=== PATIENT | male | born 1940 | race Caucasian/White ===

== ENCOUNTER → 2018-03-29 | Emergency (ER) | payer OTHER, BC ==
[~2018-03-29] MED LIST: TETANUS AND DIPHTHERIA TOXOID 0.5 ML DISP.SYRIN IM ONE
[2018-03-29 13:28] VITALS: BP 148/68; PULSE 56; TEMP 97; BMI 24.2
--- NOTE | 2018-03-29 14:30 | PDOC ---
History of Present Illness - General History Source: Patient, Spouse - History of Present Illness Initial Comments: 77 y/o M from [facility] w/PMH of gait instability, HLD, dementia, depression, alzheimer's, CKD, HTN, AAA, BPH, PVD, lung ca (s/p resection) presents to the ER after a mechanical fall last night. He got up to go the bathroom at approximately 2 am and slipped and fell while wearing socks. He hit his head on the baseboard of bathroom and crawled to his bed and got back in bed. He denies any LOC. He told the NH about his fall at 9am because he says he did not find anyone to tell until them. He cannot walk without his walker and if he walks using his walker he can only walk approximately 5 feet. He denies any CP, SOB, palpitations, light-headedness, dizziness at the time of the fall and he says he slipped due to wearing socks. Currently denies the same symptoms including [place] , N/V/F/C, dysuria, increased frequency, cough, LE edema. He has no pain around site of bruising at R eye or at laceration site. He does report having increased dizziness since starting klonopin about 1 week ago for agitation instead of using marijuana. He has had 1 fall in the past 1 year for which he did not seek medical attention. PMH:gait instability, HLD, dementia, depression, alzheimer's, CKD, HTN, AAA, BPH , PVD, lung ca (s/p resection) PSHx: lung nodule resection 1 year ago, appendectomy SH: Smoked 2 ppd until 3 years ago for approximately 40 years. Denies alcohol use. Marijuana use twice a day. Allergies: NKDA Meds: Sertraline 100 mg, Metoprolol succ 25 mg qd, ASA 81, Melatonin 3 mg. Code Status: DNR/DNI HCP: : Jessi Orta 03/29/18 14:31 03/29/18 14:33 <Sunil Hull - Last Filed: 03/29/18 17:21> <Margarita Lantigua - Last Filed: 03/29/18 18:05> - General Chief Complaint: Injury Stated Complaint: FALL Time Seen by Provider: 03/29/18 13:44 Past History - Past Medical History COPD: No Dementia: Yes (alzheimers) Disorders: Yes (kidney failure stage 1) HTN: Yes Hypercholesterolemia: Yes Psychiatric Problems: Yes (major depressive disorder) - Suicide/Smoking/Psychosocial Hx Smoking History: Former smoker Have you smoked in the past 12 months: No If you are a former smoker, when did you quit?: 2014 Information on smoking cessation initiated: No Hx Alcohol Use: No Drug/Substance Use Hx: No Substance Use Type: None <Suinl Hull - Last Filed: 03/29/18 17:21> <Margarita Lantigua - Last Filed: 03/29/18 18:05> - Past Medical History Allergies/Adverse Reactions: Allergies Allergy/AdvReac Type Severity Reaction Status Date / Time No Known Allergies Allergy Verified 03/29/18 14:39 Home Medications: Ambulatory Orders Aspirin [ASA -] 81 mg PO DAILY 03/29/18 Melatonin 3 mg PO HS 03/29/18 Metoprolol Succinate 25 mg PO DAILY 03/29/18 Sertraline HCl 100 mg PO DAILY 03/29/18 Tamsulosin HCl 0.4 mg PO DAILY 03/29/18 *Physical Exam - Vital Signs Last Vital Signs Temp Pulse Resp BP Pulse Ox 97.0 F L 56 L 16 148/68 100 03/29/18 13:19 03/29/18 13:19 03/29/18 13:19 03/29/18 13:19 03/29/18 13:19 <Sunil Hull - Last Filed: 03/29/18 17:21> - Vital Signs Last Vital Signs Temp Pulse Resp BP Pulse Ox 97.0 F L 56 L 16 148/68 100 03/29/18 13:19 03/29/18 13:19 03/29/18 13:19 03/29/18 13:19 03/29/18 13:19 <Margarita Lantigua - Last Filed: 03/29/18 18:05> ED Treatment Course - LABORATORY CBC & Chemistry Diagram: 03/29/18 15:35 03/29/18 15:35 <Sunil Hull - Last Filed: 03/29/18 17:21> - LABORATORY CBC & Chemistry Diagram: 03/29/18 15:35 03/29/18 15:35 - ADDITIONAL ORDERS Additional order review: Laboratory Results 03/29/18 03/29/18 03/29/18 15:35 15:35 15:04 PT with INR 11.60 INR 0.98 PTT (Actin FS) 29.7 Sodium 139 Potassium 4.0 Chloride 107 Carbon Dioxide 25 Anion Gap 7 L BUN 19 H Creatinine 1.6 H Creat Clearance w eGFR 42.24 Random Glucose 84 Calcium 9.3 Phosphorus 3.5 Magnesium 2.2 Total Bilirubin 0.3 AST 13 L ALT 16 Alkaline Phosphatase 70 Creatine Kinase 38 Troponin I < 0.02 Total Protein 7.4 Albumin 3.5 Urine Color Urine Appearance Urine pH Ur Specific [place] Urine Protein Urine Glucose (UA) Urine Ketones Urine Blood Urine Nitrite Urine Bilirubin Urine Urobilinogen Ur Leukocyte Esterase Opiates Screen Negative Methadone Screen Negative Barbiturate Screen Negative Phencyclidine Screen Negative Ur Amphetamines Screen Negative MDMA (Ecstasy) Screen Negative Benzodiazepines Screen Negative Cocaine Screen Negative U Marijuana (THC) Screen Negative 03/29/18 15:04 PT with INR INR PTT (Actin FS) Sodium Potassium Chloride Carbon Dioxide Anion Gap BUN Creatinine Creat Clearance w eGFR Random Glucose Calcium Phosphorus Magnesium Total Bilirubin AST ALT Alkaline Phosphatase Creatine Kinase Troponin I Total Protein Albumin Urine Color Yellow Urine Appearance Clear Urine pH 8.0 Ur Specific [place] 1.011 Urine Protein Negative Urine Glucose (UA) Negative Urine Ketones Negative Urine Blood Negative Urine Nitrite Negative Urine Bilirubin Negative Urine Urobilinogen Negative Ur Leukocyte Esterase Negative Opiates Screen Methadone Screen Barbiturate Screen Phencyclidine Screen Ur Amphetamines Screen MDMA (Ecstasy) Screen Benzodiazepines Screen Cocaine Screen U Marijuana (THC) Screen 03/29/18 15:35 RBC 4.40 MCV 91.4 MCHC 33.1 RDW 14.3 MPV 9.7 Neutrophils % 72.7 Lymphocytes % 17.5 Monocytes % 7.8 Eosinophils % 1.6 Basophils % 0.4 - RADIOLOGY Radiology Studies Ordered: Category Date Time Status CERVICAL SPINE CT W/O CONTR [CT] Stat CT Scan 03/29/18 15:[address] W/O CONTRAST [CT] Stat CT Scan 03/29/18 15:30 Taken - Medications Given in the ED: ED Medications Discontinued Medications Generic Name Dose Route Start Last Admin Trade Name Freq PRN Reason Stop Dose Admin Tetanus/Diphtheria Toxoids Adsorbed 0.5 ml 03/29/18 15:32 03/29/18 16:40 Decavac IM 03/29/18 15:33 0.5 ml .ONCE ONE Administration <Margarita Lantigua Chicobeverly - Last Filed: 03/29/18 18:05> Medical Decision Making - Medical Decision Making s/p mechanical fall at [facility]. Pt with laceration under R eyebrow. Will check CBC, CMP, UA, Trops, Head CT, CXR, EKG 03/29/18 15:48 UA negative. 03/29/18 17:13 R eyebrow lac sutured with three 5.0 sutures prepped with lidocaine and cleaned with NS. Head Ct negative for bleed. CXR with no acute pathology. is adamant that she will be taking the pt back home and does not want to wait for further CT results. Will f/u on CT results and let the pt know of results if any positive findings. Suture instructions: keep dry x 24 hours, then may wash with soap and water 2- 3X per day, topical antibiotics such as neosporin. follow up in 5 days for suture removal. motrin/tylenol for pain control. 03/29/18 17:19 Discharge instructions given to pt and . Pt's took pt in wheelchair out of ER before discharge paperwork could be given. <Sunil Hull - Last Filed: 03/29/18 17:21> *DC/Admit/Observation/Transfer <Sunil Hull - Last Filed: 03/29/18 17:21> - Discharge Dispostion Decision to Admit order: No <Margarita Lantigua - Last Filed: 03/29/18 18:05> Diagnosis at time of Disposition: Eyebrow laceration, Fall - Discharge Dispostion Disposition: ELOPED Condition at time of disposition: Stable - Patient Instructions Printed Discharge Instructions: DI for Laceration Repair -- Simple, How to Prevent Falls Additional Instructions: wound/laceration assessed and repaired, w/o complications, bleeding controlled. area cleaned and dried, dressings placed with topical bacitracin. monitor for signs of infection including fevers or chills, redness, streaking, swelling, purulence, malodor. keep dry x 24 hours, then may wash with soap and water 2-3X per day, topical antibiotics such as neosporin. follow up in 5 days for suture removal, either return to the emergency department or have your primary care remove in 5 days.. motrin/tylenol for pain control. tetanus is also up to date. pt and family made aware of impression and plan.
[2018-03-29 15:18] LABS: URINE APPEARANCE CLEAR; URINE BILIRUBIN NEGATIVE (<2.0 mg/dL); URINE COLOR YELLOW; URINE GLUCOSE (UA) NEGATIVE (NEGATIVE); URINE KETONE NEGATIVE (NEGATIVE); URINE LEUK ESTERASE NEGATIVE (NEGATIVE); URINE NITRITE NEGATIVE (NEGATIVE); URINE PROTEIN NEGATIVE (NEGATIVE); URINE UROBILINOGEN NEGATIVE mg/dL (0.2-1.0)
--- NOTE | 2018-03-29 15:30 | PDOC ---
Attending Attestation - Resident Resident Name: Raquel Hulltik - ED Attending Attestation I have performed the following: I have examined & evaluated the patient, The case was reviewed & discussed with the resident, I agree w/resident's findings & plan - HPI HPI: 03/29/18 16:43 77 YOM, with a significant past medical history of gait instability, HLD, dementia, depression, alzheimer's, CKD, HTN, AAA, BPH, PVD, lung ca (s/p resection), who presents to the emergency department via EMS from [facility] s/p unwitnessed mechanical fall. As per patient, he tripped and fell on his way to the bathroom last night hitting his head. He notes a laceration and eye swelling after his fall. He crawled back into his bed because the staff were not around when he fell thus, he waited until the morning to inform group home staff. He denies any LOC, palpitations, weakness, or tingling at the time of the fall. He denies any recent fevers, chills, headache or dizziness. He denies any recent nausea, vomit, diarrhea or constipation. He denies any recent chest pain or shortness of breath. He denies any recent dysuria, frequency, urgency or hematuria. Allergies: NKDA Past surgical history: lung nodule resection 1 year ago, appendectomy Social History: Smoked 2 ppd until 3 years ago for approximately 40 years. Denies alcohol use. Marijuana use twice a day. - Physicial Exam PE: 03/29/18 16:46 General: GCS 15 NAD HEENT: NCAT, PERRL, EOMI. Airway intact. right upper eyelid ecchymosis. right lateral eyebrow laceration, nonbleeding, measuring 1cm. Neck: neck supple, no midline C spine tenderness, ROM intact. Resp: Lungs clear, no crepitus Chest: no clavicle or chest wall tenderness CVS: RRR, 2+ pulses throughout. Abdomen: Abdomen soft, NTND, nonperitoneal. Back: Back nontender, no midline spinal tenderness, FROM, no stepoffs. MSK: Pelvis stable, FROM in all extremities. No focal msk tenderness in all extremities. Neuro: Alert, no focal neuro deficits. disoriented at baseline. Skin: intact, normal color and well perfused. - Medical Decision Making 03/29/18 16:46 Marivel 77 y/o M from [facility] w/PMH of gait instability, HLD, dementia, depression, alzheimer's, CKD, HTN, AAA, BPH, PVD, lung ca (s/p resection) presents to the ER after a mechanical fall last night, unwitnessed. Went to bathroom, slipped and fell while wearing socks. Hit head, no LOC, but did crawl to bed. vitals wnl, reassuring labs and lytes at baseline, no derangements. Cr 1.6, which is old per history. UA neg for infection. CT head with old infarct, no BLOCK CABLEMAN bleed, no microvascular changes. CT c spine neg for fx. tdap up to date per family suture of right eyebrow laceration, uncomplicated, see procedure. wound/laceration assessed and repaired, w/o complications, bleeding controlled. area cleaned and dried, dressings placed with topical bacitracin. monitor for signs of infection including fevers or chills, redness, streaking, swelling, purulence, malodor. keep dry x 24 hours, then may wash with soap and water 2-3X per day, topical antibiotics such as neosporin. follow up in 5 days for suture removal. tylenol for pain control. tetanus is also up to date. family made aware of impression and plan. information verbally given above, was adamant on prompt discharge, eloped the patient prior to full discharge paperwork. 03/29/18 18:08 Procedures - Laceration/Wound Repair Right Face Wound Length: to 2.5 cm Wound Explored: clean Wound's Depth, Shape: superficial Irrigated w/ Saline: Yes Anesthesia: 1% Lidocaine Amount of Anesthetic (ccs): 2 Wound Debrided: minimal Wound Repaired With: Sutures Suture Size/Type: 5:0 Number of Sutures: 3 Layer Closure: No Progress: 03/29/18 18:07 no complications or bleeding.
[2018-03-29 15:53] LABS: BASO % 0.4 % (0-2.0); EOS % 1.6 % (0-4.5); HEMATOCRIT 40.2 % (35.4-49); HEMOGLOBIN 13.3 GM/dL (11.7-16.9); LYMPH % 17.5 % (8-40); MCH 30.3 pg (25.7-33.7); MCHC 33.1 g/dl (32.0-35.9); MEAN CELL VOLUME 91.4 fl (80-96); MEAN PLT VOLUME 9.7 fl (7.5-11.1); MONO % 7.8 % (3.8-10.2); NEUT % 72.7 % (42.8-82.8); PLATELET COUNT 185 K/MM3 (134-434); RDW 14.3 % (11.9-15.9); WHITE BLOOD COUNT 9.2 K/mm3 (4.0-10.0)
[2018-03-29 16:15] LABS: INR 0.98 (0.83-1.09); PROTHROMBIN TIME (PATIENT) 11.6 SEC (9.7-13.0)
[2018-03-29 16:16] LABS: ALBUMIN 3.5 g/dl (3.4-5.0); ALK PHOS 70 U/L (45-117); ANION GAP 7 MMOL/L (8-16); BILIRUBIN,TOTAL 0.3 mg/dL (0.2-1); BLOOD UREA NITROGEN 19 mg/dL (7-18); CALCIUM 9.3 mg/dL (8.5-10.1); CHLORIDE 107 mmol/L (98-107); CO2 25 mmol/L (21-32); CREATININE 1.6 mg/dL (0.55-1.3); GLUCOSE,RANDOM 84 mg/dL (74-106); MAGNESIUM 2.2 mg/dL (1.8-2.4); PHOSPHOROUS 3.5 mg/dL (2.5-4.9); SGOT/AST 13 U/L (15-37); SGPT/ALT 16 U/L (13-61); SODIUM 139 mmol/L (136-145); TOT PROT 7.4 g/dl (6.4-8.2)
[2018-03-29 16:19] LABS: ACTIVATED PTT 29.7 SECONDS (25.2-36.5)
[2018-03-29 16:39] LABS: COCAINE, UR NEGATIVE ng/ml (CUTOFF=300); METHADONE, UR NEGATIVE ng/ml (CUTOFF=300); OPIATES, URI NEGATIVE ng/ml (CUTOFF=300); PHENCYCLIDINE,URINE NEGATIVE ng/ml (CUTOFF=25); URINE AMPHETAMINES NEGATIVE ng/ml (CUTOFF=500); URINE BARBITURATES NEGATIVE ng/ml (CUTOFF=200); URINE BENZODIAZEPINES NEGATIVE ng/ml (CUTOFF=200)
== END | disposition left against medical advice (07) ==
LOC: JER 13:05
PROC: 3E0234Z Introduction of Serum, Toxoid and Vaccine into Muscle, Percutaneous Approach (ICD-10-PCS; principal; 2018-03-29)
PROC: 0HQ1XZZ Repair Face Skin, External Approach (ICD-10-PCS; 2018-03-29)
DX: S01.111A Laceration without foreign body of right eyelid and periocular area, initial encounter (principal); W01.198A Fall on same level from slipping, tripping and stumbling with subsequent striking against other object, initial encounter; Y93.01 Activity, walking, marching and hiking; Y92.121 Bathroom in nursing home as the place of occurrence of the external cause; Y99.8 Other external cause status; R26.81 Unsteadiness on feet; E78.00 Pure hypercholesterolemia, unspecified; G30.9 Alzheimer's disease, unspecified; F02.80 Dementia in other diseases classified elsewhere, unspecified severity, without behavioral disturbance, psychotic disturbance, mood disturbance, and anxiety; F32.9 Major depressive disorder, single episode, unspecified; I12.9 Hypertensive chronic kidney disease with stage 1 through stage 4 chronic kidney disease, or unspecified chronic kidney disease; N18.1 Chronic kidney disease, stage 1; N40.0 Benign prostatic hyperplasia without lower urinary tract symptoms; I73.9 Peripheral vascular disease, unspecified; Z86.79 Personal history of other diseases of the circulatory system; Z85.118 Personal history of other malignant neoplasm of bronchus and lung; R26.89 Other abnormalities of gait and mobility; Z99.89 Dependence on other enabling machines and devices; Z79.82 Long term (current) use of aspirin
CPT/HCPCS: 12011; 36415; 70450-TC; 70486-TC; 71045-TC-FY; 72125-TC; 80053; 80307; 81003; 82550; 83735; 84100; 84484; 85025; 85610; 85730; 86850; 86900; 86901; 87086; 90471; 99283-25

== ENCOUNTER 2018-07-15 18:12 | Inpatient (IN) | payer OTHER, BC ==
--- NOTE | 2018-07-15 19:21 | PDOC ---
History of Present Illness - General Chief Complaint: Revisit, Lab Variance Stated Complaint: Revisit, Lab Variance - History of Present Illness Initial Comments: The patient is a 77M from [facility] w/ a history of dementia, AAA, BPH, HTN, PVD, and lung cancer s/p resection who presents for evaluation of 1d of altered mental status, described as lethargy, and decreased PO intake. Hx obtained from the patient's daughter as he is non-verbal. She states that he also has a new onset, non-productive cough. Denies known fevers, sick contacts, for neves catheter use. Reports at baseline patient is verbal but nonsensical speech and requires full assistance for daily activities. History limited by patient's medical condition 07/15/18 19:57 Past History - Past Medical History Allergies/Adverse Reactions: Allergies Allergy/AdvReac Type Severity Reaction Status Date / Time No Known Allergies Allergy Verified 03/29/18 14:39 Home Medications: Ambulatory Orders Aspirin [ASA -] 81 mg PO DAILY 03/29/18 Melatonin 3 mg PO HS 03/29/18 Metoprolol Succinate 25 mg PO DAILY 03/29/18 Sertraline HCl 100 mg PO DAILY 03/29/18 Tamsulosin HCl 0.4 mg PO DAILY 03/29/18 COPD: No CHF: No Dementia: Yes (alzheimers) Disorders: Yes (kidney failure stage 1) HTN: Yes Hypercholesterolemia: Yes Psychiatric Problems: Yes (major depressive disorder) - Suicide/Smoking/Psychosocial Hx Smoking History: Never smoked Have you smoked in the past 12 months: No If you are a former smoker, when did you quit?: 2014 Information on smoking cessation initiated: No Hx Alcohol Use: No Drug/Substance Use Hx: No Substance Use Type: None Review of Systems - Review of Systems Able to Perform ROS?: No (2/2 medical condition) *Physical Exam - Vital Signs Last Vital Signs Temp Pulse Resp BP Pulse Ox 99.3 F 120 H 15 124/89 98 07/15/18 19:17 07/15/18 19:17 07/15/18 19:17 07/15/18 19:17 07/15/18 19:17 - Physical Exam Comments: GENERAL: Awake, not oriented, in no acute distress HEAD: No signs of trauma, normocephalic, atraumatic EYES: PERRLA, EOMI, sclera anicteric, conjunctiva clear ENT: Dry mucosa, nares patent, no oropharyngeal erythema LUNGS: Dry, shallow cough, poor inspiratory effort, no wheeze/rhonchi appreciated HEART: Regular rate and rhythm, normal S1 and S2, no murmurs appreciated, peripheral pulses normal and equal bilaterally ABDOMEN: Soft, nontender, non-distended, normoactive bowel sounds EXTREMITIES: moves all extremities spontaneous NEUROLOGICAL: Withdraws to pain, does not follow commands, unable to assess orientation, SKIN: Warm, Dry, decreased turgor 07/15/18 19:41 Moderate Sedation - Procedure Monitoring Vital Signs: Procedure Monitoring Vital Signs Temperature 99.3 F 07/15/18 19:17 Pulse Rate 120 H 07/15/18 19:17 Respiratory Rate 15 07/15/18 19:17 Blood Pressure 124/89 07/15/18 19:17 O2 Sat by Pulse Oximetry (%) 98 07/15/18 19:17 ED Treatment Course - LABORATORY CBC & Chemistry Diagram: 07/15/18 20:15 07/15/18 20:15 Medical Decision Making - Medical Decision Making The pt is a 77M from [facility] w/ a history of dementia, AAA, BPH, HTN, PVD, and lung cancer s/p resection who presents for evaluation of AMS associated cough and poor PO intake for 1d. ED Course CMP, CBC, Cardiac profile, Blood cx, UA, UCx, Lactate ECG, CXR 07/15/18 19:42 Leukocytosis to 41.8 No anemia Hypernatremia to 159 Acute on chronic CKD/AISSATOU -Cr 4.5, previous 1.6 Lactic acidosis, 2.7 Trop I neg Acidemia, VBG pH 7.16 UA w/o evidence of UTI Will continue fluid resuscitation Renally dosed Vanc/Zosyn given Plan for admission for sepsis/IV abx Dispo: admit 07/15/18 23:10 *DC/Admit/Observation/Transfer Diagnosis at time of Disposition: Dehydration, Acute kidney injury superimposed on chronic kidney disease Sepsis Qualifiers: Sepsis type: sepsis due to unspecified organism Qualified Code(s): A41.9 - Sepsis, unspecified organism Dementia Qualifiers: Dementia type: unspecified type Dementia behavioral disturbance: without behavioral disturbance Qualified Code(s): F03.90 - Unspecified dementia without behavioral disturbance - Discharge Dispostion Condition at time of disposition: Guarded Decision to Admit order: Yes - Referrals - Patient Instructions - Post Discharge Activity
--- NOTE | 2018-07-15 19:41 | PDOC ---
Attending Attestation - Resident Resident Name: Fransisco Madera - ED Attending Attestation I have performed the following: I have examined & evaluated the patient, The case was reviewed & discussed with the resident, I agree w/resident's findings & plan, Exceptions are as noted - HPI HPI: 07/15/18 19:42 77M pmh HTN, HLD,CKD, AAA, PVD, Lung CA, Alzheimer's, BPH from [facility] here for recent change in baseline mental status per family and [facility] staff, a/w recent cough and URI symptoms - Physicial Exam PE: 07/15/18 22:58 Agree with exam as documented by resident - Medical Decision Making 07/15/18 22:58 From [place] with worsening mental status and VS derangement eval/tx for sepsis f/u labs, imaging for source tx broadly likely admission 07/15/18 23:09 Dehydration, hypernatremia, uremia, johana a/w ckd, wbc>40 with bands continue with broad coverage Gentle rehydration, follow chem admit
[2018-07-15] MEDS ORDERED: ACETAMINOPHEN 1000 MG/100 ML VIAL (NON FORMULARY) IVPB ONE (20:01)
[2018-07-15] MEDS ORDERED: SODIUM CHLORIDE 0.9% 500 ML INFUS.BAG IV ONE ×2 (20:01→23:07)
[2018-07-15 20:31] LABS: BASO % 1.1 % (0-2.0); HEMATOCRIT 44.4 % (35.4-49); HEMOGLOBIN 14.4 GM/dL (11.7-16.9); LYMPH % 2.6 % (8-40); MCH 30.2 pg (25.7-33.7); MCHC 32.3 g/dl (32.0-35.9); MEAN CELL VOLUME 93.6 fl (80-96); MEAN PLT VOLUME 11.1 fl (7.5-11.1); MONO % 3.2 % (3.8-10.2); NEUT % 93.1 % (42.8-82.8); PLATELET COUNT 474 K/MM3 (134-434); RBC 4.75 M/mm3 (4.00-5.60); RDW 16.1 % (11.9-15.9)
[2018-07-15 20:36] LABS: WHITE BLOOD COUNT 41.8 K/mm3 (4.0-10.0)
[2018-07-15] MEDS ORDERED: PIPERACILLIN/TAZOB 2.25 GM 2.25 GM in DEXTROSE 5%-WATER - 50 ML IVPB ONE (20:43)
[2018-07-15] MEDS ORDERED: VANCOMYCIN 1,000 MG in DEXTROSE 5%-WATER - 250 ML IVPB ONE (20:44)
[2018-07-15 20:50] LABS: URINE APPEARANCE SLCLOUDY; URINE BILIRUBIN NEGATIVE (<2.0 mg/dL); URINE COLOR YELLOW; URINE GLUCOSE (UA) NEGATIVE (NEGATIVE); URINE KETONE NEGATIVE (NEGATIVE); URINE LEUK ESTERASE NEGATIVE (NEGATIVE); URINE NITRITE NEGATIVE (NEGATIVE); URINE PROTEIN NEGATIVE (NEGATIVE); URINE UROBILINOGEN NEGATIVE mg/dL (0.2-1.0)
[2018-07-15 21:09] LABS: ALBUMIN 2.9 g/dl (3.4-5.0); ALK PHOS 91 U/L (45-117); ANION GAP 13 MMOL/L (8-16); BILIRUBIN,TOTAL 0.4 mg/dL (0.2-1); CHLORIDE 126 mmol/L (98-107); CO2 21 mmol/L (21-32); CREATININE 4.5 mg/dL (0.55-1.3); GLUCOSE,RANDOM 111 mg/dL (74-106); POTASSIUM 4.4 mmol/L (3.5-5.1); SGOT/AST 24 U/L (15-37); SODIUM 159 mmol/L (136-145); TOT PROT 8.5 g/dl (6.4-8.2)
[2018-07-15 21:10] LABS: SGPT/ALT 49 U/L (13-61)
[2018-07-15 21:26] LABS: PLATELET ESTIMATE INCREASED
[2018-07-15 21:28] LABS: BLOOD UREA NITROGEN 117 mg/dL (7-18)
--- NOTE | 2018-07-15 21:52 | HP ---
Admitting History and Physical - Primary Care Physician PCP: Ross Hamilton - Admission Chief Complaint: Alterd mental status History of Present Illness: 77 yrs old man [place] resident , needs assistance in feeding and ambulation, DNR/ DNI H/O Dementia, HTN, CA Lung , CKD stage 3, Dyslipedemia, poor historina, information is gathered from the family and [place] chart, apprrently patient developed URTI symptoms a wk ago with fever and cough, nasal congestion, developed worsening confusion, less active and poor PO intake, family noticed that patient is less responsive from base line, blood w/u at [facility] shows rising BUN TWBC 30 K Hypernatremia and Hyperkalemia, transferred to ED for further evaluation, in the Ed patient is minimally responsive, dehtdrated, tachycardiac , elevated TWBC 41 K with Bandemia, and worsening renal function with high lactic acid recived IV Hydration, IV vancomycine and Zosyn admitted for further management, no documented diarrhea, vomiting or hematuria. 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 Cardiovascular: Yes: Aortic Insufficiency - Smoking History Smoking history: Never smoked Have you smoked in the past 12 months: No If you are a former smoker, when did you quit?: 2015 - Alcohol/Substance Use Hx Alcohol Use: No - Social History Usual Living Arrangement: Yes: Residential History of Recent Travel: No Home Medications - Allergies Allergies/Adverse Reactions: Allergies Allergy/AdvReac Type Severity Reaction Status Date / Time No Known Allergies Allergy Verified 03/29/18 14:39 - Home Medications Home Medications: Ambulatory Orders Aspirin [ASA -] 81 mg PO DAILY 03/29/18 RX: Melatonin 3 mg PO HS 03/29/18 RX: Metoprolol Succinate 25 mg PO DAILY 03/29/18 RX: Sertraline HCl 100 mg PO DAILY 03/29/18 RX: Tamsulosin HCl 0.4 mg PO DAILY 03/29/18 Family Disease History - Family Disease History Family History: Unremarkable Review of Systems Unable to obtain ROS, reason: Dementia Physical Examination Vital Signs: Vital Signs Temperature 99.3 F 07/15/18 19:17 Pulse Rate 120 H 07/15/18 19:17 Respiratory Rate 15 07/15/18 19:17 Blood Pressure 124/89 07/15/18 19:17 O2 Sat by Pulse Oximetry (%) 98 01/17/19 19:17 Elderly man oriented to self opens eye with verbal commamd, HEENT: Mm dry, nasal congestion NECK: No JVd No Bruit, normal Carotids CHEST: Ocassional crepts CVS: S1S2 Tachycardia ABD: No distention mild lower abd tenderness and suprapubic fullness, BS + EXT: No edema feet, no calf tenderness, Pulses + FIELD REIMBURSEMENT MANAGER: Confused, lethargic, moving all extremities Labs: CBC, BMP 07/15/18 20:15 07/15/18 20:15 Imaging - Results X-ray: Report Reviewed (Report awaited) EKG: Report Reviewed (HR 117 [place] 130 QRS 64 QTc [address] chnages ) Problem List - Problems (1) Sepsis Assessment/Plan: Unknown sourse UA normal, minimal chest sign X ray report is pending will F/U CXR, Urine and blood culture, Influenza A and B screening, Sepsis protocol, received IV Hydration, vanvomycin 1gm and Zosyn will cont Zosyn 2.25 gm Q 6 hrly ID consult Rpt Lactic acid and BMP Code(s): A41.9 - SEPSIS, UNSPECIFIED ORGANISM (2) Dehydration Assessment/Plan: Due to poor PO intake F/U BMP after IV Hydration Code(s): E86.0 - DEHYDRATION (3) Acute kidney injury superimposed on chronic kidney disease Assessment/Plan: At base line CKD stage 3 Creat 1.6 present with elevated BUN/ Creat 117/4.5 due to dehydrtaion and sepssi cont IV Hydration, renal consult, Foleys cathter , bladder scan IP/OP chart, Bernal catheter. Code(s): N17.9 - ACUTE KIDNEY FAILURE, UNSPECIFIED; N18.9 - CHRONIC KIDNEY DISEASE, UNSPECIFIED (4) Toxic metabolic encephalopathy Assessment/Plan: Due to infection, Hypernatremia and uremia f/u neuro check Code(s): G92 - TOXIC ENCEPHALOPATHY (5) Hypernatremia Assessment/Plan: Due to dehydration F/U BMP in am after IV Hydration Code(s): E87.0 - HYPEROSMOLALITY AND HYPERNATREMIA (6) HTN (hypertension) Assessment/Plan: Well controlled cont home meds Code(s): I10 - ESSENTIAL (PRIMARY) HYPERTENSION (7) Dementia Assessment/Plan: Chronic present with worsening symptoms. Code(s): F03.90 - UNSPECIFIED DEMENTIA WITHOUT BEHAVIORAL DISTURBANCE
[2018-07-15] MEDS ORDERED: ACETAMINOPHEN 650 MG SUPP.RECT PR PRN (22:27)
[2018-07-15 23:02] LABS: VENOUS PO2 32.7 mmHg (28-48)
[2018-07-15 23:06] LABS: VENOUS PH 7.16 (7.32-7.42)
[2018-07-15] MEDS: MELATONIN 1 MG TABLET PO SCH (23:19)
[2018-07-16] MEDS ORDERED: DEXTROSE 5%-WATER - 50 ML IVPB ONE ×3 (02:23→16:24)
[2018-07-16] MEDS ORDERED: PIPERACILLIN/TAZOBACTAM 2.25 GM VIAL IVPB ONE ×3 (02:23→16:24)
[2018-07-16] MEDS: PIPERACILLIN/TAZOB 2.25 GM 2.25 GM in DEXTROSE 5%-WATER - 50 ML IVPB SCH ×4 (02:54→21:53)
[2018-07-16 07:14] LABS: ALBUMIN 2.2 g/dl (3.4-5.0); ALK PHOS 72 U/L (45-117); ANION GAP 11 MMOL/L (8-16); BILIRUBIN,TOTAL 0.4 mg/dL (0.2-1); CALCIUM 7.9 mg/dL (8.5-10.1); CHLORIDE 129 mmol/L (98-107); CO2 21 mmol/L (21-32); CREATININE 3.9 mg/dL (0.55-1.3); GLUCOSE,RANDOM 100 mg/dL (74-106); POTASSIUM 4.4 mmol/L (3.5-5.1); SGOT/AST 31 U/L (15-37); SGPT/ALT 39 U/L (13-61); TOT PROT 6.5 g/dl (6.4-8.2)
[2018-07-16 07:42] LABS: BLOOD UREA NITROGEN 113 mg/dL (7-18)
[2018-07-16 07:43] LABS: SODIUM 161 mmol/L (136-145)
[2018-07-16 07:47] VITALS: BMI 23.3
[2018-07-16 08:10] LABS: BASO % 0.6 % (0-2.0); EOS % 0.3 % (0-4.5); HEMATOCRIT 38.2 % (35.4-49); HEMOGLOBIN 12.5 GM/dL (11.7-16.9); LYMPH % 4.8 % (8-40); MCH 30.7 pg (25.7-33.7); MCHC 32.6 g/dl (32.0-35.9); MEAN CELL VOLUME 94.1 fl (80-96); MEAN PLT VOLUME 10.5 fl (7.5-11.1); MONO % 2.8 % (3.8-10.2); NEUT % 91.5 % (42.8-82.8); PLATELET COUNT 307 K/MM3 (134-434); RBC 4.06 M/mm3 (4.00-5.60); WHITE BLOOD COUNT 26.2 K/mm3 (4.0-10.0)
[2018-07-16] MEDS ORDERED: SODIUM CHLORIDE 0.45% 1,000 ML IV SCH (09:00)
[2018-07-16] MEDS: ASPIRIN 81 MG CHEWABLE TABLETS PO SCH (09:36)
[2018-07-16] MEDS: metoPROLOL SUCCINATE 25 MG TAB.SR.24H (FP) PO SCH (09:36)
[2018-07-16] MEDS: TAMSULOSIN HCL 0.4 MG CAP PO SCH (09:36)
--- NOTE | 2018-07-16 10:55 | CONSULT ---
Consult - text type - Consultation Consultation Note: Renal Consult for AISSATOU/Hypernatremia This is a 77 year old gentleman with hx of Dementia, Hypertension, Lung Ca, CKD stage 4 (baseline Cr ~1.6 as reported on prior records on [employer]), HLD who presented from home with cough, congestion and worsening mental status and found to have hypernatremia and AISSATOU. History obtained from the who is at the bedside. Previous Cr was 1.6 03/2018. Pt was at [place] and was on anti- psychotic drugs. Pt cannot eat on his own and if fed by at dinner time. No N/V/D noted. No fever noted. Unclear amount of urine being produced. No NSAIDs noted on AUG. PMHx: As above Allergies: NKDA Family HX: NC Social Hx: No T/A/D ROS: as per HPI Home Medications Medication Instructions Recorded Aspirin [ASA -] 81 mg PO DAILY 03/29/18 Melatonin 3 mg PO HS 03/29/18 Metoprolol Succinate 25 mg PO DAILY 03/29/18 Sertraline HCl 100 mg PO DAILY 03/29/18 Tamsulosin HCl 0.4 mg PO DAILY 03/29/18 Clonazepam [Klonopin] 0.25 mg PO BID 07/16/18 Sennosides [Senna] 2 tablet PO HS 07/16/18 Vit C/Ascorb Sod/Multivit-Min 500 mg PO BID 07/16/18 [Emergen-C 500 mg Chewable Tab] Vital Signs Temperature 97.5 F L 07/16/18 06:00 Pulse Rate 84 07/16/18 06:00 Respiratory Rate 16 07/16/18 06:00 Blood Pressure 125/65 07/16/18 06:00 O2 Sat by Pulse Oximetry (%) 96 07/16/18 00:30 Intake & Output 07/13/18 07/14/18 07/15/18 07/16/18 23:59 23:59 23:59 23:59 Intake Total 0 Output Total 1200 Balance -1200 Weight 81.647 kg 65.771 kg NAD Sleeping Neck supple, no JVD Dry MM RRR, No M/R CTA soft NT/ND No LE edema, clubbing or cyanosis neves in place CBC, BMP 07/16/18 08:00 07/16/18 05:30 Laboratory Tests 07/15/18 07/15/1807/16/19 20:15 20:20 05:30 Sodium 159 H 161 H* BUN 117 H* 113 H* Creatinine 4.5 H 3.9 H Lactic Acid 2.7 H* Calcium 7.9 L Albumin 2.2 L 07/16/18 08:00 Sodium BUN Creatinine Lactic Acid 1.2 Calcium Albumin Current Medications Acetaminophen (Tylenol Suppository -) 650 mg SD Q4H PRN PRN Reason: FEVER Aspirin (Asa -) 81 mg PO DAILY [facility] Last Admin: 07/16/18 09:36 Dose: 81 mg Piperacillin Sod/Tazobactam (Sod 2.25 gm/ Dextrose) 50 mls @ 100 mls/hr IVPB Q8H-IV FIL[facility]; Protocol Sodium Chloride (1/2 Normal Saline) 1,000 mls @ 100 mls/hr IV ASDIR [facility] Last Admin: 07/16/18 09:36 Dose: 100 mls/hr Melatonin (Melatonin) 3 mg PO HS [facility] Last Admin: 07/15/18 23:19 Dose: Not Given Metoprolol Succinate (Toprol Xl -) 25 mg PO DAILY [facility] Last Admin: 07/16/18 09:36 Dose: 25 mg Tamsulosin HCl (Flomax -) 0.4 mg PO DAILY@0830 [facility] Last Admin: 07/16/18 09:36 Dose: 0.4 mg 77 year old gentleman with hx of Dementia, Hypertension, Lung Ca, CKD stage 4 ( baseline Cr ~1.6 as reported on prior records on [employer]), HLD who presented from home with cough, congestion and worsening mental status and found to have hypernatremia and AISSATOU. #AISSATOU on possible CKD likely from hypovolemia #CKD (baseline Cr ~1.6) #Hypernatremia (water deficit ~5.7L) #Dementia #AMS #Leukocytosis r/o sepsis Check Urine studies for FeNa, UPCR, Urine OSM Will give NS bolous 1L over 4 hours followed by D51/2 NS at 125cc per hour Trend BMP twice daily keep MAP > 65 Avoid nephrotoxins, IV contrast, FAYE/ARB or diuretics at the present time careful monitoring of respiratory status while on IVF Continue Flomax, D/C neves in am as long pt is not oliguric On Emperic Abx, f/u cultures supportive care for PNA Thank you Magdy Underwood DO
[2018-07-16] MEDS ORDERED: SODIUM CHLORIDE 1,000 ML IV STA (11:22)
--- NOTE | 2018-07-16 11:39 | EKG ---
Test Reason : Blood Pressure : / mmHG Vent. Rate : 117 BPM Atrial Rate : 117 BPM P-R Int : 130 ms QRS Dur : 064 ms QT Int : 344 ms P-R-T Axes : 066 033 071 degrees QTc Int : 479 ms SINUS TACHYCARDIA WITH FUSION COMPLEXES NONSPECIFIC ST ABNORMALITY ABNORMAL ECG WHEN COMPARED WITH ECG OF 29-DEC-2007 15:13, FUSION COMPLEXES ARE NOW PRESENT Confirmed by LISSET ENCINAS, FABIAN ([id number]) on 07/16/2018 11:39:15 AM Referred By: Confirmed By:FABIAN DARLING MD
[2018-07-16 13:04] LABS: OSMOLALITY,SERUM 287 mosm/kg (278-305)
--- NOTE | 2018-07-16 14:18 | PN ---
Progress Note (short form) - Note Progress Note: ID CONSULT DICTATED MARKED LEUKOCYTOSIS SEPSIS ? LUNG SOURCE LACTIC ACIDOSIS AZOTEMIA HYPERNATREMIA AWAIT BC OBTAIN SPUTUM C/S, LEGIONELLA/PNEUMOCOCCAL AG INFLUENZA SWAB EMIRIC SONIAN
--- NOTE | 2018-07-16 14:56 | CONS ---
DATE OF CONSULTATION: DATE OF DICTATION: 07/16/2018 The patient is a 77-year-old male evaluated for leukocytosis. History is obtained from the chart as he suffers from dementia and cannot give a history. He is a resident of a assisted facility. He was noted to have altered mental status and anorexia for 1 day prior to admission. According to the notes, he had also been experiencing upper respiratory tract symptoms for approximately 1 week consisting of nonproductive cough. He was transferred to the emergency room where he was noted to have a markedly elevated white blood cell count and low-grade fever. In addition, the patient was found to have renal failure and lactic acidosis. At the present time he is awake; however, he is confused. He is unable to offer any additional details. No reports of shaking chills, labored breathing, vomiting, diarrhea, grossly purulent urine, or infected decubitus ulcers. PAST MEDICAL HISTORY: Positive for dementia, BPH, hypertension, peripheral vascular disease, abdominal aortic aneurysm, lung cancer, chronic kidney disease, hyperlipidemia. ALLERGIES: No known allergies. MEDICATIONS: Aspirin, metoprolol, melatonin, sertraline, tamsulosin. SOCIAL HISTORY: He is a resident of a assisted facility, suffers from dementia, is dependent in activities of daily living. REVIEW OF SYSTEMS: Neurologic: Positive for dementia. No loss of consciousness, seizure activity, or focal weakness. Cardiac: Negative chest pain or palpitations. Respiratory: As per HPI. Gastrointestinal: Negative vomiting or diarrhea. Genitourinary: Negative for urinary tract infection. LABORATORY DATA: White count on admission 41.8 with a left shift. Hematocrit 38.2, platelet count 307. BUN 113, creatinine 3.9. Urinalysis: Negative leukocyte esterase. Influenza swab negative. Lactic acid 2.7. Liver enzymes normal. Chest x-ray read as negative; however, there are increased markings at the right base. PHYSICAL EXAMINATION: General: He is supine in bed, no acute distress, breathing nonlabored. Vital Signs: Temperature 97.8, T-max 100.1. Blood pressure 80/54, pulse 84, regular. Respirations 18 per minute. HEENT: Sclerae are anicteric. Cardiovascular: Heart sounds S1, S2. Lungs: Scattered rhonchi. Poor inspiratory effort. Abdomen: Soft. No tenderness elicited. Extremities: Negative for edema. IMPRESSION: 1. Marked leukocytosis with left shift. 2. Sepsis, possible lung source. 3. Lactic acidosis. 4. Renal failure. 5. Hypernatremia. Await blood culture results. Will obtain influenza swab, sputum culture, urine Legionella antigen. Empiric antibiotic coverage with Zosyn. Patient has been given a stat dose of vancomycin, adjust Zosyn for renal insufficiency. Await culture results. Will follow. Thank you for the kind referral. PASCUAL JUNE M.D. [id number]
[2018-07-16] MEDS: DEXTROSE 5%-0.45% SALINE 1,000 ML IV SCH (15:42)
[2018-07-16 19:19] LABS: ANION GAP 12 MMOL/L (8-16); BLOOD UREA NITROGEN 98 mg/dL (7-18); CALCIUM 7.6 mg/dL (8.5-10.1); CHLORIDE 134 mmol/L (98-107); CO2 17 mmol/L (21-32); CREATININE 3.2 mg/dL (0.55-1.3); GLUCOSE,RANDOM 122 mg/dL (74-106); POTASSIUM 3.7 mmol/L (3.5-5.1)
[2018-07-16 20:13] LABS: SODIUM 164 mmol/L (136-145)
[2018-07-16] MEDS ORDERED: PT OWN MED DRAWER 7, Y5N ONE (22:05)
[2018-07-16] MEDS: MELATONIN 1 MG TABLET PO SCH ×2 (22:13→22:19)
[2018-07-17] MEDS ORDERED: DEXTROSE 5%-WATER - 50 ML IVPB ONE ×3 (01:22→16:59)
[2018-07-17] MEDS ORDERED: PIPERACILLIN/TAZOBACTAM 2.25 GM VIAL IVPB ONE ×3 (01:22→16:58)
[2018-07-17] MEDS: PIPERACILLIN/TAZOB 2.25 GM 2.25 GM in DEXTROSE 5%-WATER - 50 ML IVPB SCH ×3 (01:35→17:27)
[2018-07-17 09:09] LABS: BASO % 0.9 % (0-2.0); EOS % 1.3 % (0-4.5); HEMATOCRIT 37.7 % (35.4-49); HEMOGLOBIN 12.1 GM/dL (11.7-16.9); LYMPH % 8.5 % (8-40); MCH 30.5 pg (25.7-33.7); MEAN CELL VOLUME 95.1 fl (80-96); MEAN PLT VOLUME 10.6 fl (7.5-11.1); MONO % 2.9 % (3.8-10.2); NEUT % 86.4 % (42.8-82.8); PLATELET COUNT 274 K/MM3 (134-434); RBC 3.97 M/mm3 (4.00-5.60); RDW 15.5 % (11.9-15.9); WHITE BLOOD COUNT 15.9 K/mm3 (4.0-10.0)
[2018-07-17] MEDS ORDERED: PT OWN MED DRAWER 7, Y5N ONE ×2 (09:14→21:34)
[2018-07-17 09:43] LABS: ALBUMIN 2.5 g/dl (3.4-5.0); ALK PHOS 72 U/L (45-117); ANION GAP 9 MMOL/L (8-16); BILIRUBIN,TOTAL 0.5 mg/dL (0.2-1); BLOOD UREA NITROGEN 81 mg/dL (7-18); CHLORIDE 131 mmol/L (98-107); CO2 21 mmol/L (21-32); CREATININE 2.8 mg/dL (0.55-1.3); GLUCOSE,RANDOM 121 mg/dL (74-106); MAGNESIUM 2.6 mg/dL (1.8-2.4); PHOSPHOROUS 2.9 mg/dL (2.5-4.9); POTASSIUM 3.9 mmol/L (3.5-5.1); SGOT/AST 30 U/L (15-37); SGPT/ALT 43 U/L (13-61); TOT PROT 7.2 g/dl (6.4-8.2)
[2018-07-17] MEDS: DEXTROSE 5%-0.45% SALINE 1,000 ML IV SCH ×2 (10:05→11:37)
[2018-07-17] MEDS: metoPROLOL SUCCINATE 25 MG TAB.SR.24H (FP) PO SCH (10:05)
[2018-07-17] MEDS: ASPIRIN 81 MG CHEWABLE TABLETS PO SCH (10:05)
[2018-07-17] MEDS: TAMSULOSIN HCL 0.4 MG CAP PO SCH (10:05)
[2018-07-17 10:10] LABS: SODIUM 161 mmol/L (136-145)
--- NOTE | 2018-07-17 15:30 | PN ---
Progress Note, Physician History of Present Illness: Confused No acute distress Breathing non-labored Afebrile WBC improved Azotemia improved BC (-) Flu (-) - Current Medication List Current Medications: Active Medications Acetaminophen (Tylenol Suppository -) 650 mg MO Q4H PRN PRN Reason: FEVER Aspirin (Asa -) 81 mg PO DAILY [facility] Last Admin: 07/17/18 10:05 Dose: 81 mg Dextrose/Sodium Chloride (D5-1/2ns -) 1,000 mls @ 125 mls/hr IV ASDIR [facility] Last Admin: 07/17/18 11:37 Dose: Not Given Piperacillin Sod/Tazobactam (Sod 2.25 gm/ Dextrose) 50 mls @ 100 mls/hr IVPB Q8H-IV FILIBERTO; Protocol Last Admin: 07/17/18 10:05 Dose: 100 mls/hr Melatonin (Melatonin) 3 mg PO HS [facility] Last Admin: 07/16/18 22:19 Dose: Not Given Metoprolol Succinate (Toprol Xl -) 25 mg PO DAILY [facility] Last Admin: 07/17/18 10:05 Dose: 25 mg Tamsulosin HCl (Flomax -) 0.4 mg PO DAILY@0830 [facility] Last Admin: 07/17/18 10:05 Dose: 0.4 mg - Objective Vital Signs: Vital Signs Temperature 97.3 F L 07/17/18 02:00 Pulse Rate 80 07/17/18 02:00 Respiratory Rate 18 07/17/18 10:00 Blood Pressure 156/68 07/17/18 02:00 O2 Sat by Pulse Oximetry (%) 98 07/17/18 10:00 Constitutional: Yes: No Distress Cardiovascular: Yes: Regular Rate and Rhythm, S1, S2 Respiratory: Yes: CTA Bilaterally Gastrointestinal: Yes: Normal Bowel Sounds Edema: No Labs: CBC, BMP 07/17/18 08:42 07/17/18 08:42 Assessment/Plan Leukocytosis- improved ? pneumonia Azotemia Hypernatremia Lactic acidosis resolved Continue empiric zosyn
--- NOTE | 2018-07-17 16:31 | PN ---
Progress Note (short form) - Note Progress Note: 77 year old gentleman with hx of Dementia, Hypertension, Lung Ca, CKD stage 4 (baseline Cr ~1.6 as [facility] HLD cough, congestion and worsening mental status and found to have hypernatremia and AISSATOU. Active Medications Acetaminophen (Tylenol Suppository -) 650 mg HI Q4H PRN PRN Reason: FEVER Aspirin (Asa -) 81 mg PO DAILY [facility] Last Admin: 07/17/18 10:05 Dose: 81 mg Dextrose/Sodium Chloride (D5-1/2ns -) 1,000 mls @ 125 mls/hr IV ASDIR [facility] Last Admin: 07/17/18 11:37 Dose: Not Given Piperacillin Sod/Tazobactam (Sod 2.25 gm/ Dextrose) 50 mls @ 100 mls/hr IVPB Q8H-IV [facility]; Protocol Last Admin: 07/17/18 10:05 Dose: 100 mls/hr Melatonin (Melatonin) 3 mg PO HS [facility] Last Admin: 07/16/18 22:19 Dose: Not Given Metoprolol Succinate (Toprol Xl -) 25 mg PO DAILY [facility] Last Admin: 07/17/18 10:05 Dose: 25 mg Tamsulosin HCl (Flomax -) 0.4 mg PO DAILY@0830 [facility] Last Admin: 07/17/18 10:05 Dose: 0.4 mg Last Vital Signs Temp Pulse Resp BP Pulse Ox 97.8 F 78 20 148/64 98 07/17/18 16:11 07/17/18 16:11 07/17/18 16:11 07/17/18 16:11 07/17/18 10:00 Lungs clear Heart reg Abd soft nontender Ext no edema CBC, BMP 07/17/18 08:42 07/17/18 08:42 IMP- -AISSATOU on possible CKD likely from hypovolemia -CKD (baseline Cr ~1.6) -Hypernatremia - improving (original water deficit ~5.7L) -Dementia -AMS - improving as well -Leukocytosis r/o sepsis Plan- continue current IVF
[2018-07-17] MEDS: MELATONIN 1 MG TABLET PO SCH (21:42)
[2018-07-18] MEDS ORDERED: DEXTROSE 5%-WATER - 50 ML IVPB ONE ×3 (01:06→17:18)
[2018-07-18] MEDS ORDERED: PIPERACILLIN/TAZOBACTAM 2.25 GM VIAL IVPB ONE ×3 (01:06→17:18)
[2018-07-18] MEDS: DEXTROSE 5%-0.45% SALINE 1,000 ML IV SCH ×2 (01:26→11:05)
[2018-07-18] MEDS: PIPERACILLIN/TAZOB 2.25 GM 2.25 GM in DEXTROSE 5%-WATER - 50 ML IVPB SCH ×3 (01:26→17:20)
[2018-07-18] MEDS: ASPIRIN 81 MG CHEWABLE TABLETS PO SCH (09:31)
[2018-07-18] MEDS: metoPROLOL SUCCINATE 25 MG TAB.SR.24H (FP) PO SCH (09:31)
[2018-07-18] MEDS: TAMSULOSIN HCL 0.4 MG CAP PO SCH (09:31)
--- NOTE | 2018-07-18 14:00 | PN ---
Progress Note (short form) - Note Progress Note: 77 year old gentleman with hx of Dementia, Hypertension, Lung Ca, CKD stage 4 (baseline Cr ~1.6 as [facility]), HLD cough, congestion and worsening mental status and found to have hypernatremia and AISSATOU. Current Medications Acetaminophen (Tylenol Suppository -) 650 mg HI Q4H PRN PRN Reason: FEVER Aspirin (Asa -) 81 mg PO DAILY [facility] Last Admin: 07/18/18 09:31 Dose: 81 mg Dextrose/Sodium Chloride (D5-1/2ns -) 1,000 mls @ 125 mls/hr IV ASDIR [facility] Last Admin: 07/18/18 01:26 Dose: 125 mls/hr Piperacillin Sod/Tazobactam (Sod 2.25 gm/ Dextrose) 50 mls @ 100 mls/hr IVPB Q8H-IV [facility]; Protocol Last Admin: 07/18/18 09:31 Dose: 100 mls/hr Melatonin (Melatonin) 3 mg PO HS [facility] Last Admin: 07/17/18 21:42 Dose: 3 mg Metoprolol Succinate (Toprol Xl -) 25 mg PO DAILY [facility] Last Admin: 07/18/18 09:31 Dose: 25 mg Tamsulosin HCl (Flomax -) 0.4 mg PO DAILY@0830 [facility] Last Admin: 07/18/18 09:31 Dose: 0.4 mg Last Vital Signs Temp Pulse Resp BP Pulse Ox 97.8 F 57 L 18 152/70 93 L 07/18/18 06:00 07/18/18 06:00 07/18/18 08:09 07/18/18 06:00 07/18/18 08:09 Lungs clear Heart reg Abd soft nontender Ext no edema CBC, BMP 07/17/18 08:42 07/18/18 15:10 CBC, BMP 07/17/18 08:42 07/17/18 08:42 IMP- -AISSATOU on possible CKD likely from hypovolemia -CKD (baseline Cr ~1.6) -Hypernatremia - still improving (original water deficit ~5.7L) -Dementia -AMS - improving as well -Leukocytosis r/o sepsis Plan- continue current IVF
[2018-07-18 15:32] LABS: ANION GAP 11 MMOL/L (8-16); BLOOD UREA NITROGEN 54 mg/dL (7-18); CALCIUM 7.6 mg/dL (8.5-10.1); CHLORIDE 129 mmol/L (98-107); CO2 19 mmol/L (21-32); CREATININE 2.1 mg/dL (0.55-1.3); GLUCOSE,RANDOM 92 mg/dL (74-106); POTASSIUM 4.3 mmol/L (3.5-5.1); SODIUM 158 mmol/L (136-145)
[2018-07-18] MEDS: MELATONIN 1 MG TABLET PO SCH (21:13)
[2018-07-19] MEDS ORDERED: PIPERACILLIN/TAZOBACTAM 2.25 GM VIAL IVPB ONE ×3 (01:01→16:55)
[2018-07-19] MEDS ORDERED: DEXTROSE 5%-WATER - 50 ML IVPB ONE ×3 (01:01→16:55)
[2018-07-19] MEDS: PIPERACILLIN/TAZOB 2.25 GM 2.25 GM in DEXTROSE 5%-WATER - 50 ML IVPB SCH ×3 (01:42→17:11)
[2018-07-19] MEDS: DEXTROSE 5%-0.45% SALINE 1,000 ML IV SCH (03:52)
[2018-07-19] MEDS: DEXTROSE 5%-1/3 NS - 500 ML IV SCH (09:05)
[2018-07-19] MEDS: ASPIRIN 81 MG CHEWABLE TABLETS PO SCH (09:14)
[2018-07-19] MEDS: metoPROLOL SUCCINATE 25 MG TAB.SR.24H (FP) PO SCH (09:14)
[2018-07-19] MEDS: TAMSULOSIN HCL 0.4 MG CAP PO SCH (09:14)
--- NOTE | 2018-07-19 09:44 | PN ---
Progress Note, Physician History of Present Illness: pt seen/ examined chart reviewed mix up with attending name-- Apparently seen by Dr. Kwan--Initially -- apparently not there pt and will be following by me. Being seen by nevin/ i/bettina and notes reviewed and appreciated Awake/ comfortable mood stable but slightly angry-- Discussed with - reports that is his baseline. - Current Medication List Current Medications: Active Medications Acetaminophen (Tylenol Suppository -) 650 mg [place] Q4H PRN PRN Reason: FEVER Aspirin (Asa -) 81 mg PO DAILY [facility] Last Admin: 07/19/18 09:14 Dose: 81 mg Piperacillin Sod/Tazobactam (Sod 2.25 gm/ Dextrose) 50 mls @ 100 mls/hr IVPB Q8H-IV [facility]; Protocol Last Admin: 07/19/18 09:14 Dose: 100 mls/hr Dextrose/Sodium Chloride (D5-1/3ns -) 500 mls @ 125 mls/hr IV ASDIR [facility] Melatonin (Melatonin) 3 mg PO HS [facility] Last Admin: 07/18/18 21:13 Dose: 3 mg Metoprolol Succinate (Toprol Xl -) 25 mg PO DAILY [facility] Last Admin: 07/19/18 09:14 Dose: 25 mg Tamsulosin HCl (Flomax -) 0.4 mg PO DAILY@0830 [facility] Last Admin: 07/19/18 09:14 Dose: 0.4 mg - Objective Vital Signs: Vital Signs Temperature 97.6 F 07/19/18 08:54 Pulse Rate 66 07/19/18 08:54 Respiratory Rate 18 07/19/18 08:54 Blood Pressure 151/77 07/19/18 08:54 O2 Sat by Pulse Oximetry (%) 93 L 07/19/18 08:02 Constitutional: Yes: No Distress HENT: Yes: Other (mucosa moist) Neck: Yes: Supple Cardiovascular: Yes: Regular Rate and Rhythm Respiratory: Yes: CTA Bilaterally Edema: No Neurological: Yes: Alert Labs: CBC, BMP 07/17/18 08:42 07/18/18 15:10 - ....Imaging Chest X-ray: Report Reviewed Problem List - Problems (1) Acute kidney injury superimposed on chronic kidney disease Code(s): N17.9 - ACUTE KIDNEY FAILURE, UNSPECIFIED; N18.9 - CHRONIC KIDNEY DISEASE, UNSPECIFIED (2) Dehydration Code(s): E86.0 - DEHYDRATION (3) Dementia Code(s): F03.90 - UNSPECIFIED DEMENTIA WITHOUT BEHAVIORAL DISTURBANCE Qualifiers: Dementia type: unspecified type Dementia behavioral disturbance: without behavioral disturbance Qualified Code(s): F03.90 - Unspecified dementia without behavioral disturbance (4) HTN (hypertension) Code(s): I10 - ESSENTIAL (PRIMARY) HYPERTENSION (5) Sepsis Code(s): A41.9 - SEPSIS, UNSPECIFIED ORGANISM Qualifiers: Sepsis type: sepsis due to unspecified organism Qualified Code(s): A41.9 - Sepsis, unspecified organism (6) Toxic metabolic encephalopathy Code(s): G92 - TOXIC ENCEPHALOPATHY Assessment/Plan clinically better Continue present care abx fluids monitor lytes/ cbc daily oob - chair dvt prphylaxis will follow discussed with pts also as well as nursing staff
[2018-07-19] MEDS: ENOXAPARIN NA (PORCINE) 30 MG/0.3 ML DISP.SYRIN SQ SCH (11:19)
--- NOTE | 2018-07-19 13:37 | PN ---
Progress Note (short form) - Note Progress Note: Renal follow up for AISSATOU and Hypernatremia Pt seen and examined at the bedside pt was upset and crying confused, no sob, cp, abd pain Vital Signs Temperature 97.6 F 07/19/18 08:54 Pulse Rate 66 07/19/18 08:54 Respiratory Rate 18 07/19/18 08:54 Blood Pressure 151/77 07/19/18 08:54 O2 Sat by Pulse Oximetry (%) 93 L 07/19/18 08:02 Intake & Output 07/16/18 07/17/18 07/18/18 07/19/18 23:59 23:59 23:59 23:59 Intake Total 100 3325 3450 Output Total 2600 1900 1700 1300 Balance -2500 1425 1750 -1300 Weight 65.771 kg NAD Sleeping Neck supple, no JVD Dry MM RRR, No M/R CTA soft NT/ND No LE edema, clubbing or cyanosis neves in place CBC, BMP 07/17/18 08:42 07/18/18 15:10 Current Medications Acetaminophen (Tylenol Suppository -) 650 mg MO Q4H PRN PRN Reason: FEVER Aspirin (Asa -) 81 mg PO DAILY [facility] Last Admin: 07/19/18 09:14 Dose: 81 mg Enoxaparin Sodium (Lovenox -) 30 mg SQ DAILY [facility] Last Admin: 07/19/18 11:19 Dose: 30 mg Piperacillin Sod/Tazobactam (Sod 2.25 gm/ Dextrose) 50 mls @ 100 mls/hr IVPB Q8H-IV [facility]; Protocol Last Admin: 07/19/18 09:14 Dose: 100 mls/hr Dextrose/Sodium Chloride (D5-1/3ns -) 500 mls @ 125 mls/hr IV ASDIR [facility] Last Admin: 07/19/18 09:05 Dose: 125 mls/hr Melatonin (Melatonin) 3 mg PO HS [facility] Last Admin: 07/18/18 21:13 Dose: 3 mg Metoprolol Succinate (Toprol Xl -) 25 mg PO DAILY [facility] Last Admin: 07/19/18 09:14 Dose: 25 mg Tamsulosin HCl (Flomax -) 0.4 mg PO DAILY@0830 [facility] Last Admin: 07/19/18 09:14 Dose: 0.4 mg 77 year old gentleman with hx of Dementia, Hypertension, Lung Ca, CKD stage 4 ( baseline Cr ~1.6 as reported on prior records on [address]), HLD who presented from home with cough, congestion and worsening mental status and found to have hypernatremia and AISSATOU. #AISSATOU on possible CKD likely from hypovolemia #CKD (baseline Cr ~1.6) #Hypernatremia (water deficit ~5.7L) #Dementia #AMS #Leukocytosis r/o sepsis Renal function gradually improving Water deficit remains high, will change IVF to D51/3 NS at 125 cc per hour Trend serum Na BID Avoid nephrotoxins and IV contrast Thank you Magdy Underwood DO
[2018-07-19 18:50] LABS: ANION GAP 11 MMOL/L (8-16); BLOOD UREA NITROGEN 39 mg/dL (7-18); CALCIUM 7.6 mg/dL (8.5-10.1); CHLORIDE 122 mmol/L (98-107); CO2 21 mmol/L (21-32); CREATININE 1.9 mg/dL (0.55-1.3); GLUCOSE,RANDOM 107 mg/dL (74-106); POTASSIUM 3.9 mmol/L (3.5-5.1); SODIUM 154 mmol/L (136-145)
[2018-07-19] MEDS ORDERED: PT OWN MED DRAWER 7, Y5N ONE (21:17)
[2018-07-19] MEDS: MELATONIN 1 MG TABLET PO SCH (21:20)
[2018-07-20] MEDS ORDERED: PIPERACILLIN/TAZOBACTAM 2.25 GM VIAL IVPB ONE ×3 (00:56→18:22)
[2018-07-20] MEDS ORDERED: DEXTROSE 5%-WATER - 50 ML IVPB ONE ×3 (00:56→18:22)
[2018-07-20] MEDS: DEXTROSE 5%-1/3 NS - 500 ML IV SCH ×2 (00:59→08:50)
[2018-07-20] MEDS: PIPERACILLIN/TAZOB 2.25 GM 2.25 GM in DEXTROSE 5%-WATER - 50 ML IVPB SCH ×3 (01:00→18:41)
[2018-07-20 07:18] LABS: BASO % 0.4 % (0-2.0); EOS % 1.3 % (0-4.5); HEMATOCRIT 32.9 % (35.4-49); HEMOGLOBIN 10.7 GM/dL (11.7-16.9); LYMPH % 14.1 % (8-40); MCH 30.5 pg (25.7-33.7); MCHC 32.6 g/dl (32.0-35.9); MEAN CELL VOLUME 93.6 fl (80-96); MEAN PLT VOLUME 10.8 fl (7.5-11.1); MONO % 4.7 % (3.8-10.2); NEUT % 79.5 % (42.8-82.8); PLATELET COUNT 247 K/MM3 (134-434); RBC 3.52 M/mm3 (4.00-5.60); WHITE BLOOD COUNT 11.6 K/mm3 (4.0-10.0)
[2018-07-20 07:27] LABS: ALBUMIN 2.1 g/dl (3.4-5.0); ALK PHOS 67 U/L (45-117); ANION GAP 11 MMOL/L (8-16); BILIRUBIN,TOTAL 0.4 mg/dL (0.2-1); BLOOD UREA NITROGEN 33 mg/dL (7-18); CALCIUM 7.4 mg/dL (8.5-10.1); CHLORIDE 118 mmol/L (98-107); CO2 19 mmol/L (21-32); CREATININE 1.9 mg/dL (0.55-1.3); GLUCOSE,RANDOM 90 mg/dL (74-106); POTASSIUM 3.9 mmol/L (3.5-5.1); SGOT/AST 25 U/L (15-37); SGPT/ALT 38 U/L (13-61); SODIUM 148 mmol/L (136-145); TOT PROT 6.2 g/dl (6.4-8.2)
[2018-07-20] MEDS: TAMSULOSIN HCL 0.4 MG CAP PO SCH (08:49)
[2018-07-20] MEDS: ASPIRIN 81 MG CHEWABLE TABLETS PO SCH (09:00)
[2018-07-20] MEDS: metoPROLOL SUCCINATE 25 MG TAB.SR.24H (FP) PO SCH (09:00)
[2018-07-20] MEDS: ENOXAPARIN NA (PORCINE) 30 MG/0.3 ML DISP.SYRIN SQ SCH (09:00)
--- NOTE | 2018-07-20 11:43 | PN ---
Progress Note (short form) - Note Progress Note: No distress No c/o pain, sob Vital Signs - 24 hr 07/19/18 07/19/18 07/20/18 21:00 22:00 02:00 Temperature 98.9 F 96.1 F L Pulse Rate 72 70 Respiratory 18 18 Rate Blood Pressure 155/82 144/94 O2 Sat by Pulse 98 Oximetry (%) 07/20/18 06:00 Temperature 98.5 F Pulse Rate 65 Respiratory 18 Rate Blood Pressure 160/75 O2 Sat by Pulse Oximetry (%) Current Medications Generic Name Dose Route Start Last Admin Trade Name Freq PRN Reason Stop Dose Admin Acetaminophen 650 mg 07/15/18 22:27 Tylenol Suppository - MO Q4H PRN FEVER Aspirin 81 mg 07/16/18 10:00 07/20/18 09:00 Asa - PO 81 mg DAILY [facility] Administration Enoxaparin Sodium 30 mg 07/19/18 10:00 07/20/18 09:00 Lovenox - SQ 30 mg DAILY [facility] Administration Piperacillin Sod/Tazobactam 50 mls @ 100 mls/hr 07/16/18 18:00 07/20/18 09:00 Sod 2.25 gm/ Dextrose IVPB 100 mls/hr Q8H-IV [facility] Administration Protocol Dextrose/Sodium Chloride 500 mls @ 125 mls/hr 07/19/18 09:00 07/20/18 08:50 D5-1/3ns - IV Not Given ASDIR [facility] Melatonin 3 mg 07/15/18 22:00 07/19/18 21:20 Melatonin PO 3 mg HS [facility] Administration Metoprolol Succinate 25 mg 07/16/18 10:00 07/20/18 09:00 Toprol Xl - PO 25 mg DAILY [facility] Administration Tamsulosin HCl 0.4 mg 07/16/18 08:30 07/20/18 08:49 Flomax - PO 0.4 mg DAILY@0830 [facility] Administration Laboratory Results - last 24 hr 07/19/18 07/20/18 07/20/18 17:45 05:30 05:30 WBC 11.6 H RBC 3.52 L Hgb 10.7 L Hct 32.9 L MCV 93.6 MCH 30.5 MCHC 32.6 RDW 15.0 Plt Count 247 MPV 10.8 Absolute Neuts (auto) 9.2 H Neutrophils % 79.5 Lymphocytes % 14.1 D Monocytes % 4.7 Eosinophils % 1.3 Basophils % 0.4 Nucleated RBC % 0 Sodium 154 H 148 H Potassium 3.9 3.9 Chloride 122 H 118 H Carbon Dioxide 21 19 L Anion Gap 11 11 BUN 39 H 33 H Creatinine 1.9 H 1.9 H Creat Clearance w eGFR 34.64 34.64 Random Glucose 107 H 90 Calcium 7.6 L 7.4 L Total Bilirubin 0.4 AST 25 ALT 38 Alkaline Phosphatase 67 Total Protein 6.2 L Albumin 2.1 L S1 S2 RRR Lungs clear Abd- soft, NT No edema PLAN Continue with iv fluids-- renal function about the same, sodium improving IV antibiotics WBC decreased PT eval Problem List - Problems (1) Acute kidney injury superimposed on chronic kidney disease Code(s): N17.9 - ACUTE KIDNEY FAILURE, UNSPECIFIED; N18.9 - CHRONIC KIDNEY DISEASE, UNSPECIFIED (2) Altered mental status Code(s): R41.82 - ALTERED MENTAL STATUS, UNSPECIFIED (3) Dehydration Code(s): E86.0 - DEHYDRATION (4) Dementia Code(s): F03.90 - UNSPECIFIED DEMENTIA WITHOUT BEHAVIORAL DISTURBANCE Qualifiers: Dementia type: unspecified type Dementia behavioral disturbance: without behavioral disturbance Qualified Code(s): F03.90 - Unspecified dementia without behavioral disturbance (5) HTN (hypertension) Code(s): I10 - ESSENTIAL (PRIMARY) HYPERTENSION (6) Hypernatremia Code(s): E87.0 - HYPEROSMOLALITY AND HYPERNATREMIA (7) Toxic metabolic encephalopathy Code(s): G92 - TOXIC ENCEPHALOPATHY
[2018-07-20] MEDS ORDERED: PT OWN MED DRAWER 7, Y5N ONE (21:03)
[2018-07-20] MEDS: MELATONIN 1 MG TABLET PO SCH (21:43)
[2018-07-21] MEDS ORDERED: PIPERACILLIN/TAZOBACTAM 2.25 GM VIAL IVPB ONE ×3 (01:35→17:32)
[2018-07-21] MEDS ORDERED: DEXTROSE 5%-WATER - 50 ML IVPB ONE ×3 (01:36→17:32)
[2018-07-21] MEDS: PIPERACILLIN/TAZOB 2.25 GM 2.25 GM in DEXTROSE 5%-WATER - 50 ML IVPB SCH ×3 (02:15→17:39)
[2018-07-21 07:33] LABS: BASO % 0.3 % (0-2.0); EOS % 1.6 % (0-4.5); HEMATOCRIT 31.7 % (35.4-49); HEMOGLOBIN 10.5 GM/dL (11.7-16.9); LYMPH % 13.5 % (8-40); MCHC 33.2 g/dl (32.0-35.9); MEAN CELL VOLUME 93.5 fl (80-96); MEAN PLT VOLUME 10.4 fl (7.5-11.1); MONO % 5.5 % (3.8-10.2); NEUT % 79.1 % (42.8-82.8); PLATELET COUNT 215 K/MM3 (134-434); RBC 3.39 M/mm3 (4.00-5.60); RDW 15.3 % (11.9-15.9); WHITE BLOOD COUNT 10.6 K/mm3 (4.0-10.0)
[2018-07-21 08:09] LABS: ALBUMIN 2.1 g/dl (3.4-5.0); ALK PHOS 59 U/L (45-117); ANION GAP 7 MMOL/L (8-16); BILIRUBIN,TOTAL 0.3 mg/dL (0.2-1); BLOOD UREA NITROGEN 23 mg/dL (7-18); CALCIUM 7.3 mg/dL (8.5-10.1); CHLORIDE 114 mmol/L (98-107); CO2 23 mmol/L (21-32); CREATININE 1.8 mg/dL (0.55-1.3); GLUCOSE,RANDOM 104 mg/dL (74-106); POTASSIUM 3.6 mmol/L (3.5-5.1); SGOT/AST 23 U/L (15-37); SGPT/ALT 33 U/L (13-61); SODIUM 144 mmol/L (136-145)
[2018-07-21] MEDS: ASPIRIN 81 MG CHEWABLE TABLETS PO SCH (09:06)
[2018-07-21] MEDS: TAMSULOSIN HCL 0.4 MG CAP PO SCH (09:06)
[2018-07-21] MEDS: metoPROLOL SUCCINATE 25 MG TAB.SR.24H (FP) PO SCH (09:06)
[2018-07-21] MEDS: ENOXAPARIN NA (PORCINE) 30 MG/0.3 ML DISP.SYRIN SQ SCH (09:06)
[2018-07-21] MEDS: DEXTROSE 5%-1/3 NS - 500 ML IV SCH ×2 (09:11→15:00)
--- NOTE | 2018-07-21 11:56 | PN ---
Progress Note (short form) - Note Progress Note: No distress No c/o pain, sob pt confused stool all over+ refusing to eat Vital Signs - 24 hr 07/20/18 07/20/18 07/20/18 14:18 18:00 21:00 Temperature 97.3 F L 97.7 F Pulse Rate 54 L 59 L Respiratory 18 18 Rate Blood Pressure 137/67 137/70 O2 Sat by Pulse 99 Oximetry (%) 07/20/18 07/21/18 07/21/18 22:05 02:00 09:16 Temperature 98.9 F 98.9 F Pulse Rate 66 58 L 59 L Respiratory 18 18 18 Rate Blood Pressure 118/50 L 120/54 L 141/68 O2 Sat by Pulse Oximetry (%) 07/21/18 09:18 Temperature Pulse Rate Respiratory Rate Blood Pressure O2 Sat by Pulse 99 Oximetry (%) Current Medications Generic Name Dose Route Start Last Admin Trade Name Freq PRN Reason Stop Dose Admin Acetaminophen 650 mg 07/15/18 22:27 Tylenol Suppository - [place] Q4H PRN FEVER Aspirin 81 mg 07/16/18 10:00 07/21/18 09:06 Asa - PO 81 mg DAILY [facility] Administration Enoxaparin Sodium 30 mg 07/19/18 10:00 07/21/18 09:06 Lovenox - SQ 30 mg DAILY [facility] Administration Piperacillin Sod/Tazobactam 50 mls @ 100 mls/hr 07/16/18 18:00 07/21/18 09:06 Sod 2.25 gm/ Dextrose IVPB 100 mls/hr Q8H-IV [facility] Administration Protocol Dextrose/Sodium Chloride 500 mls @ 125 mls/hr 07/19/18 09:00 07/21/18 09:11 D5-1/3ns - IV 125 mls/hr ASDIR [facility] Administration Melatonin 3 mg 07/15/18 22:00 07/20/18 21:43 Melatonin PO Not Given HS [facility] Metoprolol Succinate 25 mg 07/16/18 10:00 07/21/18 09:06 Toprol Xl - PO 25 mg DAILY [facility] Administration Tamsulosin HCl 0.4 mg 07/16/18 08:30 07/21/18 09:06 Flomax - PO 0.4 mg DAILY@0830 [facility] Administration Laboratory Results - last 24 hr 07/21/18 07/21/18 07:00 07:00 WBC 10.6 H RBC 3.39 L Hgb 10.5 L Hct 31.7 L MCV 93.5 MCH 31.0 MCHC 33.2 RDW 15.3 Plt Count 215 MPV 10.4 Absolute Neuts (auto) 8.4 H Neutrophils % 79.1 Lymphocytes % 13.5 Monocytes % 5.5 Eosinophils % 1.6 Basophils % 0.3 Nucleated RBC % 0 Sodium 144 Potassium 3.6 Chloride 114 H Carbon Dioxide 23 Anion Gap 7 L BUN 23 H Creatinine 1.8 H Creat Clearance w eGFR 36.87 Random Glucose 104 Calcium 7.3 L Total Bilirubin 0.3 AST 23 ALT 33 Alkaline Phosphatase 59 Total Protein 6.0 L Albumin 2.1 L S1 S2 RRR Lungs clear Abd- soft, NT No edema PLAN Continue with iv fluids-- renal function improving IV antibiotics - empiric cultures negative, flu negative WBC decreased PT eval dc neves encourage oral intake add Remeron will dc restraints spoke with -- refusing feeding tube anticipate dc to NH this week Problem List - Problems (1) Acute kidney injury superimposed on chronic kidney disease Code(s): N17.9 - ACUTE KIDNEY FAILURE, UNSPECIFIED; N18.9 - CHRONIC KIDNEY DISEASE, UNSPECIFIED (2) Altered mental status Code(s): R41.82 - ALTERED MENTAL STATUS, UNSPECIFIED (3) Dehydration Code(s): E86.0 - DEHYDRATION (4) Dementia Code(s): F03.90 - UNSPECIFIED DEMENTIA WITHOUT BEHAVIORAL DISTURBANCE Qualifiers: Dementia type: unspecified type Dementia behavioral disturbance: without behavioral disturbance Qualified Code(s): F03.90 - Unspecified dementia without behavioral disturbance (5) HTN (hypertension) Code(s): I10 - ESSENTIAL (PRIMARY) HYPERTENSION (6) Hypernatremia Code(s): E87.0 - HYPEROSMOLALITY AND HYPERNATREMIA (7) Toxic metabolic encephalopathy Code(s): G92 - TOXIC ENCEPHALOPATHY
[2018-07-21] MEDS ORDERED: DEXTROSE 5%-1/3 NS - 500 ML IV SCH (16:35)
--- NOTE | 2018-07-21 16:35 | PN ---
Progress Note (short form) - Note Progress Note: Renal follow up for AISSATOU and Hypernatremia Pt seen and examined at the bedside sleeping no overnight events on IVF oral intake remains poor Vital Signs Temperature 98.9 F 07/21/18 14:15 Pulse Rate 61 07/21/18 14:15 Respiratory Rate 18 07/21/18 14:15 Blood Pressure 134/78 07/21/18 14:15 O2 Sat by Pulse Oximetry (%) 99 07/21/18 09:18 Intake & Output 07/18/18 07/19/18 07/20/18 07/21/18 23:59 23:59 23:59 23:59 Intake Total 3450 120 1990 850 Output Total 1700 3000 2600 1000 Balance 1750 -6120 -610 -150 NAD Sleeping Neck supple, no JVD Dry MM RRR, No M/R CTA soft NT/ND No LE edema, clubbing or cyanosis neves in place CBC, BMP 07/21/18 07:00 07/21/18 07:00 Current Medications Acetaminophen (Tylenol Suppository -) 650 mg [place] Q4H PRN PRN Reason: FEVER Aspirin (Asa -) 81 mg PO DAILY [facility] Last Admin: 07/21/18 09:06 Dose: 81 mg Enoxaparin Sodium (Lovenox -) 30 mg SQ DAILY [facility] Last Admin: 07/21/18 09:06 Dose: 30 mg Piperacillin Sod/Tazobactam (Sod 2.25 gm/ Dextrose) 50 mls @ 100 mls/hr IVPB Q8H-IV FILIBERTO; Protocol Last Admin: 07/21/18 09:06 Dose: 100 mls/hr Dextrose/Sodium Chloride (D5-1/3ns -) 500 mls @ 125 mls/hr IV ASDIR [facility] Last Admin: 07/21/18 15:00 Dose: 125 mls/hr Melatonin (Melatonin) 3 mg PO HS [facility] Last Admin: 07/20/18 21:43 Dose: Not Given Metoprolol Succinate (Toprol Xl -) 25 mg PO DAILY [facility] Last Admin: 07/21/18 09:06 Dose: 25 mg Mirtazapine (Remeron -) 7.5 mg PO HS [facility] Tamsulosin HCl (Flomax -) 0.4 mg PO DAILY@0830 [facility] Last Admin: 07/21/18 09:06 Dose: 0.4 mg 77 year old gentleman with hx of Dementia, Hypertension, Lung Ca, CKD stage 4 ( baseline Cr ~1.6 as reported on prior records on [employer]), HLD who presented from home with cough, congestion and worsening mental status and found to have hypernatremia and AISSATOU. #AISSATOU on possible CKD likely from hypovolemia #CKD (baseline Cr ~1.6) #Hypernatremia (water deficit ~5.7L) #Dementia #AMS #Leukocytosis r/o sepsis Renal function and Na improving will decrease IVF rate to 75 cc per hour Trend renal function and electrolytes Thank you Magdy Underwood DO
[2018-07-21] MEDS ORDERED: MIRTAZAPINE 15 MG TABLET (FP) PO SCH (22:00)
[2018-07-21] MEDS ORDERED: PT OWN MED DRAWER 7, Y5N ONE (22:09)
[2018-07-21] MEDS: MELATONIN 1 MG TABLET PO SCH (22:12)
[2018-07-22] MEDS ORDERED: PIPERACILLIN/TAZOBACTAM 2.25 GM VIAL IVPB ONE ×2 (01:19→10:47)
[2018-07-22] MEDS ORDERED: DEXTROSE 5%-WATER - 50 ML IVPB ONE ×2 (01:19→10:47)
[2018-07-22] MEDS: PIPERACILLIN/TAZOB 2.25 GM 2.25 GM in DEXTROSE 5%-WATER - 50 ML IVPB SCH ×2 (01:23→11:20)
[2018-07-22 11:06] LABS: BASO % 0.4 % (0-2.0); EOS % 1.6 % (0-4.5); HEMATOCRIT 31.8 % (35.4-49); HEMOGLOBIN 10.4 GM/dL (11.7-16.9); LYMPH % 14.6 % (8-40); MCH 30.6 pg (25.7-33.7); MCHC 32.6 g/dl (32.0-35.9); MEAN CELL VOLUME 94.1 fl (80-96); MEAN PLT VOLUME 10.7 fl (7.5-11.1); MONO % 6.1 % (3.8-10.2); NEUT % 77.3 % (42.8-82.8); PLATELET COUNT 193 K/MM3 (134-434); RBC 3.38 M/mm3 (4.00-5.60); RDW 15.1 % (11.9-15.9); WHITE BLOOD COUNT 9.6 K/mm3 (4.0-10.0)
[2018-07-22] MEDS: TAMSULOSIN HCL 0.4 MG CAP PO SCH (11:15)
[2018-07-22] MEDS: ASPIRIN 81 MG CHEWABLE TABLETS PO SCH (11:15)
[2018-07-22] MEDS: ENOXAPARIN NA (PORCINE) 30 MG/0.3 ML DISP.SYRIN SQ SCH (11:15)
[2018-07-22] MEDS: metoPROLOL SUCCINATE 25 MG TAB.SR.24H (FP) PO SCH (11:15)
[2018-07-22 11:39] LABS: ALBUMIN 2.1 g/dl (3.4-5.0); ALK PHOS 64 U/L (45-117); ANION GAP 9 MMOL/L (8-16); BILIRUBIN,TOTAL 0.4 mg/dL (0.2-1); BLOOD UREA NITROGEN 21 mg/dL (7-18); CALCIUM 7.6 mg/dL (8.5-10.1); CHLORIDE 113 mmol/L (98-107); CO2 23 mmol/L (21-32); CREATININE 1.8 mg/dL (0.55-1.3); GLUCOSE,RANDOM 102 mg/dL (74-106); POTASSIUM 3.7 mmol/L (3.5-5.1); SGOT/AST 21 U/L (15-37); SGPT/ALT 29 U/L (13-61); SODIUM 145 mmol/L (136-145); TOT PROT 6.2 g/dl (6.4-8.2)
[2018-07-22] MEDS ORDERED: TAMSULOSIN HCL 0.4 MG CAP PO SCH (12:15)
--- NOTE | 2018-07-22 12:17 | PN ---
Progress Note (short form) - Note Progress Note: pt seen/ examined chart reviewed Periods of agitation Pulls out IV Afebrile Vital Signs Temp 98.8 F 07/22/18 05:40 Pulse 65 07/22/18 05:40 Resp 18 07/22/18 05:40 BP 119/68 07/22/18 05:40 Pulse Ox 99 07/21/18 21:00 Intake & Output 07/21/18 07/22/18 07/22/18 23:59 11:59 23:59 Intake Total 0 Output Total 2600 600 Balance -2600 -600 Intake: Oral 0 Output: Urine 2600 600 Bernal 2600 600 Other: Voiding Method Diaper # Unmeasured Voids Bernal 1 Bowel Movement Yes No # Bowel Movements 1 Active Medications Acetaminophen (Tylenol Suppository -) 650 mg [place] Q4H PRN PRN Reason: FEVER Aspirin (Asa -) 81 mg PO DAILY [facility] Last Admin: 07/22/18 11:15 Dose: 81 mg Enoxaparin Sodium (Lovenox -) 30 mg SQ DAILY [facility] Last Admin: 07/22/18 11:15 Dose: 30 mg Piperacillin Sod/Tazobactam (Sod 2.25 gm/ Dextrose) 50 mls @ 100 mls/hr IVPB Q8H-IV FILIBERTO; Protocol Last Admin: 07/22/18 11:20 Dose: 100 mls/hr Dextrose/Sodium Chloride (D5-1/3ns -) 500 mls @ 84 mls/hr IV ASDIR [facility] Last Admin: 07/21/18 16:50 Dose: 84 mls/hr Melatonin (Melatonin) 3 mg PO [facility] Last Admin: 07/21/18 22:12 Dose: 3 mg Metoprolol Succinate (Toprol Xl -) 25 mg PO DAILY [facility] Last Admin: 07/22/18 11:15 Dose: 25 mg Mirtazapine (Remeron -) 7.5 mg PO HS [facility] Last Admin: 07/21/18 22:12 Dose: 7.5 mg Quetiapine Fumarate (Seroquel -) 25 mg PO DAILY [facility] Tamsulosin HCl (Flomax -) 0.8 mg PO DAILY@0830 [facility] CBC, BMP 07/22/18 10:00 07/22/18 10:00 Physical exam S1 S2 RRR Lungs clear Abd- soft, NT No edema PLAN clinically better WBC normalized Bernal placed again--- due to hypertension Increase Flomax Trial of Bernal DC in few days Start on seraquil low-dose Encourage oral intake Discharge planning--- anticipate tomorrow--if stable Discussed with nursing staff Discontinue antibiotics Problem List - Problems (1) Acute kidney injury superimposed on chronic kidney disease Code(s): N17.9 - ACUTE KIDNEY FAILURE, UNSPECIFIED; N18.9 - CHRONIC KIDNEY DISEASE, UNSPECIFIED (2) Dehydration Code(s): E86.0 - DEHYDRATION (3) Dementia Code(s): F03.90 - UNSPECIFIED DEMENTIA WITHOUT BEHAVIORAL DISTURBANCE Qualifiers: Dementia type: unspecified type Dementia behavioral disturbance: without behavioral disturbance Qualified Code(s): F03.90 - Unspecified dementia without behavioral disturbance (4) HTN (hypertension) Code(s): I10 - ESSENTIAL (PRIMARY) HYPERTENSION (5) Sepsis Code(s): A41.9 - SEPSIS, UNSPECIFIED ORGANISM Qualifiers: Sepsis type: sepsis due to unspecified organism Qualified Code(s): A41.9 - Sepsis, unspecified organism (6) Toxic metabolic encephalopathy Code(s): G92 - TOXIC ENCEPHALOPATHY
[2018-07-22] MEDS ORDERED: QUEtiapine FUMARATE 25 MG TABLET (FP) PO SCH (12:30)
[2018-07-22 15:26] VITALS: BP 112/56; PULSE 64; TEMP 98.1
--- NOTE | 2018-07-22 15:34 | DS ---
Physical Examination Vital Signs: Vital Signs Temperature 98.1 F 07/22/18 15:25 Pulse Rate 64 07/22/18 15:25 Respiratory Rate 18 07/22/18 15:25 Blood Pressure 112/56 L 07/22/18 15:25 O2 Sat by Pulse Oximetry (%) 100 07/22/18 09:00 Findings/Remarks: please see today's progress note Labs: CBC, BMP 07/22/18 10:00 07/22/18 10:00 Discharge Summary Reason For Visit: DEMENTIA CHRONIC KIDNEY DISEASE SEPSIS Current Active Problems Acute kidney injury superimposed on chronic kidney disease (Acute) Altered mental status (Acute) Dehydration (Acute) Dementia (Acute) HTN (hypertension) (Acute) Hypernatremia (Acute) Sepsis (Acute) Toxic metabolic encephalopathy (Acute) Hospital Course: [facility] due to--sepsis/and dehydration/hypernatremia WBC--- around 40,000 Treated with fluids and antibiotics Much improved Off antibiotics [facility]charge to [facility] with Bernal Flomax dose increased attempt to Discontinue Bernal in few days Medications also reconciled need close psych follow- Discussed with nursing staff Condition: Improved - Instructions Referrals: Adalberto Cheek [Primary Care Provider] - - Home Medications Comprehensive Discharge Medication List: Ambulatory Orders Aspirin [ASA -] 81 mg PO DAILY 03/29/18 Melatonin 3 mg PO HS 03/29/18 Metoprolol Succinate 25 mg PO DAILY 03/29/18 Sertraline HCl 100 mg PO DAILY 03/29/18 Tamsulosin HCl 0.4 mg PO DAILY 03/29/18 Clonazepam [Klonopin] 0.25 mg PO BID 07/16/18 Sennosides [Senna] 2 tablet PO HS 07/16/18 Vit C/Ascorb Sod/Multivit-Min [Emergen-C 500 mg Chewable Tab] 500 mg PO BID Enoxaparin [Lovenox -] 30 mg SQ DAILY disp.syrin 07/22/18 Quetiapine Fumarate [Seroquel -] 25 mg PO DAILY tablet 07/22/18
== END 2018-07-22 18:56 | DRG 871 ==
LOC: JER 18:12 → JERBED 21:43 → J4S 07-16 00:44
PROVIDERS: ADMIT Internal Medicine; ATTEND Internal Medicine
DX: A41.9 Sepsis, unspecified organism (principal); G92 Toxic encephalopathy; R53.2 Functional quadriplegia; N17.9 Acute kidney failure, unspecified; E87.0 Hyperosmolality and hypernatremia; N18.4 Chronic kidney disease, stage 4 (severe); E87.2 Acidosis; I12.9 Hypertensive chronic kidney disease with stage 1 through stage 4 chronic kidney disease, or unspecified chronic kidney disease; N40.0 Benign prostatic hyperplasia without lower urinary tract symptoms; I73.9 Peripheral vascular disease, unspecified; Z85.118 Personal history of other malignant neoplasm of bronchus and lung; Z90.2 Acquired absence of lung [part of]; G30.9 Alzheimer's disease, unspecified; F02.80 Dementia in other diseases classified elsewhere, unspecified severity, without behavioral disturbance, psychotic disturbance, mood disturbance, and anxiety; E78.5 Hyperlipidemia, unspecified; F32.9 Major depressive disorder, single episode, unspecified; Z87.891 Personal history of nicotine dependence; E86.0 Dehydration; Z74.01 Bed confinement status
CPT/HCPCS: 36415; 71045-TC-FY; 80048; 80053; 81003; 82550; 82570; 82803; 83605; 83735; 83930; 83935; 84100; 84156; 84300; 84484; 85025; 87040; 87086; 87804; 93005; 93010; 99283-25; J0131; J7030

== ENCOUNTER 2018-08-05 02:01 | Inpatient (IN) | payer OTHER, BC ==
--- NOTE | 2018-08-05 03:49 | PDOC ---
Attending Attestation - Resident Resident Name: GautamBlair - ED Attending Attestation I have performed the following: I have examined & evaluated the patient, The case was reviewed & discussed with the resident, I agree w/resident's findings & plan - HPI HPI: 08/05/18 06:16 77-year-old male sent for urinary retention There is no history of trauma or fever - Physicial Exam PE: 08/05/18 06:16 Agree with resident's exam - Medical Decision Making 08/05/18 06:16 77-year-old male with urinary retention Bedside ultrasound showed approximately 1000 mL of retained urine Bernal catheter inserted with immediate return of 900 mL of clear yellow urine Rocephin 1 g IV piggyback given 1 in the emergency department Plan is for discharge with outpatient urology follow-up if creatinine within reasonable limits
--- NOTE | 2018-08-05 04:06 | PDOC ---
History of Present Illness - General Chief Complaint: Urinary Problem Stated Complaint: LOW URINE OUTPUT History Source: Patient Exam Limitations: No Limitations - History of Present Illness Initial Comments: 08/05/18 03:43 77 yo M with a hx of AAA, BPH, dementia, HLD, MDD, PAD, and CKD presents to the emergency department with low urinary output. Per the patient's , he is coming from [facility] where is a resident due to dementia. He was recently admitted to the hospital and had a neves which was subsequently removed when he returned to [facility]. Per the staff, he had less urine out today and was complaining of vague abdominal pain for the past 3 days. Per the staff, he denies having fevers, diarrhea, nausea, vomiting, chest pain, SOB, and hematuria. Past History - Past Medical History Allergies/Adverse Reactions: Allergies Allergy/AdvReac Type Severity Reaction Status Date / Time No Known Allergies Allergy Verified 08/05/18 02:07 Home Medications: Ambulatory Orders Aspirin [ASA -] 81 mg PO DAILY 03/29/18 Melatonin 3 mg PO HS 03/29/18 Metoprolol Succinate 25 mg PO DAILY 03/29/18 Tamsulosin HCl 0.4 mg PO DAILY 03/29/18 Sennosides [Senna] 2 tablet PO HS 07/16/18 Vit C/Ascorb Sod/Multivit-Min [Emergen-C 500 mg Chewable Tab] 500 mg PO BID Docusate Sodium [Colace] 200 mg PO DAILY 08/05/18 Ferrous Sulfate [Feosol] 325 mg PO DAILY 08/05/18 Levothyroxine [Synthroid -] 25 mcg PO DAILY 08/05/18 Cancer: Yes (LUNG) COPD: No CHF: No Dementia: Yes (alzheimers) Disorders: Yes (BPH) HTN: Yes Hypercholesterolemia: Yes Psychiatric Problems: Yes (major depressive disorder) - Suicide/Smoking/Psychosocial Hx Smoking History: Never smoked Have you smoked in the past 12 months: No If you are a former smoker, when did you quit?: 2014 Information on smoking cessation initiated: No Hx Alcohol Use: No Drug/Substance Use Hx: No Substance Use Type: None Review of Systems - Review of Systems Able to Perform ROS?: No (Dementia) *Physical Exam - Vital Signs Last Vital Signs Temp Pulse Resp BP Pulse Ox 97.8 F 78 18 115/59 L 99 02/07/19 02:07 08/05/18 02:07 08/05/18 02:07 08/05/18 02:07 08/05/18 02:07 - Physical Exam General Appearance: Yes: Nourished, Appropriately Dressed. No: Apparent Distress, Intoxicated HEENT: positive: EOMI, TREVER, Normal Voice, Symmetrical, Pharynx Normal, Hearing Grossly Normal. negative: Pale Conjunctivae, Scleral Icterus (R), Scleral Icterus (L), Muffled/Hoarse voice, Pharyngeal Erythema, Tonsillar Exudate, Tonsillar Erythema, Nasal Congestion, Rhinorrhea, Excessive drooling Neck: positive: Trachea midline, Supple. negative: Tender, Lymphadenopathy (R) , Lymphadenopathy (L), Tender lateral, Tender midline Respiratory/Chest: positive: Lungs Clear, Normal Breath Sounds. negative: Chest Tender, Respiratory Distress, Accessory Muscle Use, Crackles, Rales, Rhonchi, Stridor, Wheezing Cardiovascular: positive: Regular Rhythm, Regular Rate, S1, S2. negative: Systolic Murmur Gastrointestinal/Abdominal: positive: Normal Bowel Sounds, Tender (lower abdominal midline suprapubic pain and distension), Flat, Soft Lymphatic: negative: Adenopathy Musculoskeletal: positive: Normal Inspection. negative: CVA Tenderness, Vertebral Tenderness Extremity: positive: Normal Capillary Refill, Normal Inspection, Normal Range of Motion. negative: Tender Integumentary: positive: Normal Color, Dry, Warm. negative: Swelling, Ecchymosis Moderate Sedation - Procedure Monitoring Vital Signs: Procedure Monitoring Vital Signs Temperature 97.8 F 08/05/18 02:07 Pulse Rate 78 08/05/18 02:07 Respiratory Rate 18 08/05/18 02:07 Blood Pressure 115/59 L 08/05/18 02:07 O2 Sat by Pulse Oximetry (%) 99 08/05/18 02:07 ED Treatment Course - LABORATORY CBC & Chemistry Diagram: 08/05/18 04:44 08/05/18 04:44 Medical Decision Making - Medical Decision Making 77 yo M with a hx of AAA, BPH, dementia, HLD, MDD, PAD, and CKD presents to the emergency department with low urinary output. Initial vitals; Initial Vital Signs Temp Pulse Resp BP Pulse Ox 97.8 F 78 18 115/59 L 99 08/05/18 02:07 08/05/18 02:07 08/05/18 02:07 08/05/18 02:07 08/05/18 02:07 Work up: ddx: obstructive nephropathy secondary to BPH vs stone Laboratory Tests 08/05/18 08/05/18 08/05/18 04:44 04:44 04:44 WBC 7.9 RBC 3.36 L Hgb 10.4 L Hct 30.7 L MCV 91.5 MCH 30.9 MCHC 33.7 RDW 15.0 Plt Count 278 D MPV 8.3 D Absolute Neuts (auto) 4.7 Neutrophils % 60.3 D Lymphocytes % 29.3 D Monocytes % 6.5 Eosinophils % 3.4 D Basophils % 0.5 Nucleated RBC % 0 Sodium 137 Potassium 4.2 Chloride 104 Carbon Dioxide 23 Anion Gap 10 BUN 49 H Creatinine 2.7 H Creat Clearance w eGFR 23.09 Random Glucose 79 Calcium 8.5 Total Bilirubin 0.3 AST 23 ALT 27 Alkaline Phosphatase 76 Total Protein 7.8 Albumin 2.7 L Urine Color Ltyellow Urine Appearance Clear Urine pH 7.0 D Ur Specific [place] 1.006 L Urine Protein Negative Urine Glucose (UA) Negative Urine Ketones Negative Urine Blood Negative Urine Nitrite Negative Urine Bilirubin Negative Urine Urobilinogen Negative Ur Leukocyte Esterase 2+ H Urine WBC (Auto) 6 Urine RBC (Auto) 1 Urine Bacteria Rare Urine Mucus Rare 08/05/18 06:52 POCUS shows mild hydronephrosis bilaterally with a large renal simple cyst on the right kidney. Bladder is overdistended with approximately 1100 cc. Per the nursing staff, 900 cc of urine came out after neves insertion. Labs show an AISSATOU on CKD (2.7 with last creatinine values at 1.8). Patient will be admitted. Patient was signed out to Dr. Solis. *DC/Admit/Observation/Transfer Diagnosis at time of Disposition: Acute kidney injury superimposed on CKD Dementia Qualifiers: Dementia type: unspecified type Dementia behavioral disturbance: without behavioral disturbance Qualified Code(s): F03.90 - Unspecified dementia without behavioral disturbance - Referrals Referrals: Adalberto Cheek [Primary Care Provider] - - Patient Instructions - Post Discharge Activity
[2018-08-05 05:08] LABS: BASO % 0.5 % (0-2.0); EOS % 3.4 % (0-4.5); HEMATOCRIT 30.7 % (35.4-49); HEMOGLOBIN 10.4 GM/dL (11.7-16.9); LYMPH % 29.3 % (8-40); MCH 30.9 pg (25.7-33.7); MCHC 33.7 g/dl (32.0-35.9); MEAN CELL VOLUME 91.5 fl (80-96); MEAN PLT VOLUME 8.3 fl (7.5-11.1); MONO % 6.5 % (3.8-10.2); NEUT % 60.3 % (42.8-82.8); PLATELET COUNT 278 K/MM3 (134-434); RBC 3.36 M/mm3 (4.00-5.60); WHITE BLOOD COUNT 7.9 K/mm3 (4.0-10.0)
[2018-08-05 05:11] LABS: URINE APPEARANCE CLEAR; URINE BILIRUBIN NEGATIVE (<2.0 mg/dL); URINE COLOR LTYELLOW; URINE GLUCOSE (UA) NEGATIVE (NEGATIVE); URINE KETONE NEGATIVE (NEGATIVE); URINE LEUK ESTERASE 2+ (NEGATIVE); URINE NITRITE NEGATIVE (NEGATIVE); URINE PROTEIN NEGATIVE (NEGATIVE); URINE UROBILINOGEN NEGATIVE mg/dL (0.2-1.0)
[2018-08-05 05:14] LABS: URINE BACTERIA RARE /hpf (NONE SEEN); URINE MUCUS RARE
[2018-08-05] MEDS ORDERED: CEFTRIAXONE 1,000 MG in DEXTROSE 5%-WATER - 50 ML IVPB ONE (05:55)
[2018-08-05] MEDS ORDERED: CEFTRIAXONE 1 GM/50 ML BAG ONE (06:16)
[2018-08-05 07:10] LABS: ALBUMIN 2.7 g/dl (3.4-5.0); ALK PHOS 76 U/L (45-117); ANION GAP 10 MMOL/L (8-16); BILIRUBIN,TOTAL 0.3 mg/dL (0.2-1); BLOOD UREA NITROGEN 49 mg/dL (7-18); CALCIUM 8.5 mg/dL (8.5-10.1); CHLORIDE 104 mmol/L (98-107); CO2 23 mmol/L (21-32); CREATININE 2.7 mg/dL (0.55-1.3); GLUCOSE,RANDOM 79 mg/dL (74-106); POTASSIUM 4.2 mmol/L (3.5-5.1); SGOT/AST 23 U/L (15-37); SGPT/ALT 27 U/L (13-61); SODIUM 137 mmol/L (136-145); TOT PROT 7.8 g/dl (6.4-8.2)
--- NOTE | 2018-08-05 07:16 | PDOC ---
History of Present Illness - General Chief Complaint: Urinary Problem Stated Complaint: LOW URINE OUTPUT Time Seen by Provider: 08/05/18 03:49 Past History - Past Medical History Allergies/Adverse Reactions: Allergies Allergy/AdvReac Type Severity Reaction Status Date / Time No Known Allergies Allergy Verified 08/05/18 02:07 Home Medications: Ambulatory Orders Aspirin [ASA -] 81 mg PO DAILY 03/29/18 Melatonin 3 mg PO HS 03/29/18 Metoprolol Succinate 25 mg PO DAILY 03/29/18 Tamsulosin HCl 0.4 mg PO DAILY 03/29/18 Sennosides [Senna] 2 tablet PO HS 07/16/18 Vit C/Ascorb Sod/Multivit-Min [Emergen-C 500 mg Chewable Tab] 500 mg PO BID Docusate Sodium [Colace] 200 mg PO DAILY 08/05/18 Ferrous Sulfate [Feosol] 325 mg PO DAILY 08/05/18 Levothyroxine [Synthroid -] 25 mcg PO DAILY 08/05/18 Cancer: Yes (LUNG) COPD: No CHF: No Dementia: Yes (alzheimers) Disorders: Yes (BPH) HTN: Yes Hypercholesterolemia: Yes Psychiatric Problems: Yes (major depressive disorder) - Suicide/Smoking/Psychosocial Hx Smoking History: Never smoked Have you smoked in the past 12 months: No If you are a former smoker, when did you quit?: 2014 Information on smoking cessation initiated: No Hx Alcohol Use: No Drug/Substance Use Hx: No Substance Use Type: None *Physical Exam - Vital Signs Last Vital Signs Temp Pulse Resp BP Pulse Ox 97.8 F 78 18 115/59 L 99 08/05/18 02:07 08/05/18 02:07 08/05/18 02:07 08/05/18 02:07 08/05/18 02:07 Moderate Sedation - Procedure Monitoring Vital Signs: Procedure Monitoring Vital Signs Temperature 97.8 F 08/05/18 02:07 Pulse Rate 78 08/05/18 02:07 Respiratory Rate 18 08/05/18 02:07 Blood Pressure 115/59 L 08/05/18 02:07 O2 Sat by Pulse Oximetry (%) 99 08/05/18 02:07 ED Treatment Course - LABORATORY CBC & Chemistry Diagram: 08/05/18 04:44 08/05/18 04:44 - ADDITIONAL ORDERS Additional order review: Laboratory Results 08/05/18 08/05/18 04:44 04:44 Sodium 137 Potassium 4.2 Chloride 104 Carbon Dioxide 23 Anion Gap 10 BUN 49 H Creatinine 2.7 H Creat Clearance w eGFR 23.09 Random Glucose 79 Calcium 8.5 Total Bilirubin 0.3 AST 23 ALT 27 Alkaline Phosphatase 76 Total Protein 7.8 Albumin 2.7 L Urine Color Ltyellow Urine Appearance Clear Urine pH 7.0 D Ur Specific [place] 1.006 L Urine Protein Negative Urine Glucose (UA) Negative Urine Ketones Negative Urine Blood Negative Urine Nitrite Negative Urine Bilirubin Negative Urine Urobilinogen Negative Ur Leukocyte Esterase 2+ H Urine WBC (Auto) 6 Urine RBC (Auto) 1 Urine Bacteria Rare Urine Mucus Rare 08/05/18 04:44 RBC 3.36 L MCV 91.5 MCHC 33.7 RDW 15.0 MPV 8.3 D Neutrophils % 60.3 D Lymphocytes % 29.3 D Monocytes % 6.5 Eosinophils % 3.4 D Basophils % 0.5 - Medications Given in the ED: ED Medications Discontinued Medications Generic Name Dose Route Start Last Admin Trade Name Freq PRN Reason Stop Dose Admin Ceftriaxone Sodium 1,000 mg/ 50 mls @ 100 mls/hr 08/05/18 05:55 08/05/18 06: 20 Dextrose IVPB 08/05/18 06:24 100 mls/hr ONCE ONE Administration Medical Decision Making - Medical Decision Making 08/05/18 07:[address] Florez. Patient is a 77 yo male w/ pmh of AAA, BPH, dementia, HLD, MDD PAD, CKD who presents for evaluation of urinary retention. Patient neves placed. Noted to have elevated Cr above patient's normal as below. UTI noted also treated with IV rocephin by previous team. Will admit for patient observation and trending of Cr's as well as UTI care. Laboratory Results - last 24 hr 08/05/18 08/05/18 08/05/18 04:44 04:44 04:44 WBC 7.9 RBC 3.36 L Hgb 10.4 L Hct 30.7 L MCV 91.5 MCH 30.9 MCHC 33.7 RDW 15.0 Plt Count 278 D MPV 8.3 D Absolute Neuts (auto) 4.7 Neutrophils % 60.3 D Lymphocytes % 29.3 D Monocytes % 6.5 Eosinophils % 3.4 D Basophils % 0.5 Nucleated RBC % 0 Sodium 137 Potassium 4.2 Chloride 104 Carbon Dioxide 23 Anion Gap 10 BUN 49 H Creatinine 2.7 H Creat Clearance w eGFR 23.09 Random Glucose 79 Calcium 8.5 Total Bilirubin 0.3 AST 23 ALT 27 Alkaline Phosphatase 76 Total Protein 7.8 Albumin 2.7 L Urine Color Ltyellow Urine Appearance Clear Urine pH 7.0 D Ur Specific [place] 1.006 L Urine Protein Negative Urine Glucose (UA) Negative Urine Ketones Negative Urine Blood Negative Urine Nitrite Negative Urine Bilirubin Negative Urine Urobilinogen Negative Ur Leukocyte Esterase 2+ H Urine WBC (Auto) 6 Urine RBC (Auto) 1 Urine Bacteria Rare Urine Mucus Rare *DC/Admit/Observation/Transfer Diagnosis at time of Disposition: Acute kidney injury superimposed on CKD, Dehydration Dementia Qualifiers: Dementia type: unspecified type Dementia behavioral disturbance: without behavioral disturbance Qualified Code(s): F03.90 - Unspecified dementia without behavioral disturbance UTI (urinary tract infection) Qualifiers: Urinary tract infection type: site unspecified Hematuria presence: without hematuria Qualified Code(s): N39.0 - Urinary tract infection, site not specified - Discharge Dispostion Decision to Admit order: Yes - Referrals Referrals: Adalberto Cheek [Primary Care Provider] - - Patient Instructions - Post Discharge Activity
[2018-08-05] MEDS ORDERED: SODIUM CHLORIDE 1,000 ML IV STA (09:16)
--- NOTE | 2018-08-05 10:00 | HP ---
Admitting History and Physical - Primary Care Physician PCP: Ross Hamilton - Admission Chief Complaint: retention urine History of Present Illness: ER Notes-- 08/05/18 03:43 77 yo M with a hx of AAA, BPH, dementia, HLD, MDD, PAD, and CKD presents to the emergency department with low urinary output. Per the patient's , he is coming from [facility] where is a resident due to dementia. He was recently admitted to the hospital and had a neves which was subsequently removed when he returned to [facility]. Per the staff, he had less urine out today and was complaining of vague abdominal pain for the past 3 days. Per the staff, he denies having fevers, diarrhea, nausea, vomiting, chest pain, SOB, and hematuria. Pt examined by me in ER-- lying in bed , no distress Pt known to me from previous admissions Neves placed in ER-- about 900cc urine drained Dementia History from NH notes and ER notes History Source: Medical Record, Transfer Record Limitations to Obtaining History: Dementia - Past Medical History MANAGER BAR: Yes: Dementia Cardiovascular: Yes: Aortic Insufficiency - Smoking History Smoking history: Never smoked Have you smoked in the past 12 months: No If you are a former smoker, when did you quit?: 2015 - Alcohol/Substance Use Hx Alcohol Use: No - Social History History of Recent Travel: No Home Medications - Allergies Allergies/Adverse Reactions: Allergies Allergy/AdvReac Type Severity Reaction Status Date / Time No Known Allergies Allergy Verified 08/05/18 02:07 - Home Medications Home Medications: Ambulatory Orders Aspirin [ASA -] 81 mg PO DAILY 03/29/18 Melatonin 3 mg PO HS 03/29/18 Metoprolol Succinate 25 mg PO DAILY 03/29/18 Tamsulosin HCl 0.4 mg PO DAILY 03/29/18 Sennosides [Senna] 2 tablet PO HS 07/16/18 Vit C/Ascorb Sod/Multivit-Min [Emergen-C 500 mg Chewable Tab] 500 mg PO BID Docusate Sodium [Colace] 200 mg PO DAILY 08/05/18 Ferrous Sulfate [Feosol] 325 mg PO DAILY 08/05/18 Levothyroxine [Synthroid -] 25 mcg PO DAILY 08/05/18 Family Disease History - Family Disease History Family History: Unable to Obtain Review of Systems Unable to obtain ROS, reason: dementia Physical Examination Vital Signs: Vital Signs Temperature 97.8 F 08/05/18 02:07 Pulse Rate 78 08/05/18 02:07 Respiratory Rate 18 08/05/18 02:07 Blood Pressure 115/59 L 08/05/18 02:07 O2 Sat by Pulse Oximetry (%) 99 08/05/18 02:07 Constitutional: Yes: No Distress, Calm Cardiovascular: Yes: Regular Rate and Rhythm Respiratory: Yes: Diminished Gastrointestinal: Yes: Normal Bowel Sounds, Soft. No: Tenderness Edema: No Labs: CBC, BMP 08/05/18 04:44 08/05/18 04:44 Problem List - Problems (1) Acute kidney injury superimposed on chronic kidney disease Code(s): N17.9 - ACUTE KIDNEY FAILURE, UNSPECIFIED; N18.9 - CHRONIC KIDNEY DISEASE, UNSPECIFIED (2) Dehydration Code(s): E86.0 - DEHYDRATION (3) Dementia Code(s): F03.90 - UNSPECIFIED DEMENTIA WITHOUT BEHAVIORAL DISTURBANCE Qualifiers: Dementia type: unspecified type Dementia behavioral disturbance: without behavioral disturbance Qualified Code(s): F03.90 - Unspecified dementia without behavioral disturbance (4) UTI (urinary tract infection) Code(s): N39.0 - URINARY TRACT INFECTION, SITE NOT SPECIFIED Qualifiers: Urinary tract infection type: site unspecified Hematuria presence: without hematuria Qualified Code(s): N39.0 - Urinary tract infection, site not specified (5) HTN (hypertension) Code(s): I10 - ESSENTIAL (PRIMARY) HYPERTENSION (6) Functional quadriplegia Code(s): R53.2 - FUNCTIONAL QUADRIPLEGIA Assessment/Plan PLAN Admit as inpatient IV fluids Urology eval for retention urine monitor renal function continue with iv antibiotics await urine culture results I had spoke with on previous admission-- she did not want feeding tube -- pt needs encouragement on eating and drinking fluids DVT prophylaxis-- Heparin sc
[2018-08-05] MEDS ORDERED: ASPIRIN 81 MG CHEWABLE TABLETS ONE (10:53)
[2018-08-05] MEDS ORDERED: DOCUSATE SODIUM 100 MG CAPSULE (FP) PO ONE (10:54)
[2018-08-05] MEDS ORDERED: PT OWN MED DRAWER 7, Y5N ONE (10:54)
[2018-08-05] MEDS: DOCUSATE SODIUM 100 MG CAPSULE (FP) PO SCH (10:55)
[2018-08-05] MEDS: ASPIRIN 81 MG CHEWABLE TABLETS PO SCH (10:55)
[2018-08-05] MEDS: SODIUM CHLORIDE 0.45% 1,000 ML IV SCH ×2 (10:55→12:56)
[2018-08-05] MEDS: metoPROLOL SUCCINATE 25 MG TAB.SR.24H (FP) PO SCH (10:56)
[2018-08-05] MEDS ORDERED: ALPRAZolam 0.25 MG TABLET PO PRN (16:01)
[2018-08-05] MEDS: NICOTINE 14 MG/24 HOURS TOPICAL PATCH TD SCH (16:18)
--- NOTE | 2018-08-05 17:31 | CON.GU ---
Consult - History of Present Illness History of Present Illness: 77 yo male [place] resident with dementia, BPH, now with urinary retention, 900 cc drained with neves insertion in ER. Currently on flomax - Past Medical History MANAGER EPIC: Yes: Dementia Cardio/Vascular: Yes: Aortic Insufficiency - Alcohol/Substance Use Hx Alcohol Use: No - Smoking History Smoking history: Never smoked Have you smoked in the past 12 months: No If you are a former smoker, when did you quit?: 2014 - Social History History of Recent Travel: No Home Medications - Allergies Allergies/Adverse Reactions: Allergies Allergy/AdvReac Type Severity Reaction Status Date / Time No Known Allergies Allergy Verified 08/05/18 02:07 - Home Medications Home Medications: Ambulatory Orders Aspirin [ASA -] 81 mg PO DAILY 03/29/18 Melatonin 3 mg PO HS 03/29/18 Metoprolol Succinate 25 mg PO DAILY 03/29/18 Tamsulosin HCl 0.4 mg PO DAILY 03/29/18 Sennosides [Senna] 2 tablet PO HS 07/16/18 Vit C/Ascorb Sod/Multivit-Min [Emergen-C 500 mg Chewable Tab] 500 mg PO BID Docusate Sodium [Colace] 200 mg PO DAILY 08/05/18 Ferrous Sulfate [Feosol] 325 mg PO DAILY 08/05/18 Levothyroxine [Synthroid -] 25 mcg PO DAILY 08/05/18 Physical Exam- Vital Signs: Vital Signs Temperature 97.6 F 08/05/18 15:55 Pulse Rate 64 08/05/18 15:55 Respiratory Rate 18 08/05/18 15:55 Blood Pressure 140/58 L 08/05/18 14:58 O2 Sat by Pulse Oximetry (%) 99 08/05/18 02:07 Renal/: Yes: Neves Present Labs: CBC, BMP 08/05/18 04:44 08/05/18 04:44 Problem List - Problems (1) Urinary retention due to benign prostatic hyperplasia Assessment/Plan: will double flomax, add finasteride Code(s): N40.1 - BENIGN PROSTATIC HYPERPLASIA WITH LOWER URINARY TRACT SYMP; R33.8 - OTHER RETENTION OF URINE
[2018-08-05] MEDS: SENNOSIDES 8.6MG TABLET (FP) PO SCH (22:06)
[2018-08-05] MEDS: HEPARIN NA (PORCINE) 5,000 UNITS/ML 1ML VIAL SQ SCH (22:06)
[2018-08-06] MEDS ORDERED: ACETAMINOPHEN 500 MG TABLET (FP) PO ONE (00:57)
[2018-08-06] MEDS ORDERED: ACETAMINOPHEN 325 MG TABLET (FP) ONE (01:04)
[2018-08-06] MEDS: SODIUM CHLORIDE 0.45% 1,000 ML IV SCH ×2 (01:14→10:27)
[2018-08-06] MEDS: LEVOTHYROXINE NA 25 MCG TABLET (FP) PO SCH (06:44)
[2018-08-06 07:17] LABS: BASO % 0.4 % (0-2.0); EOS % 2.7 % (0-4.5); HEMATOCRIT 29.6 % (35.4-49); HEMOGLOBIN 10.1 GM/dL (11.7-16.9); LYMPH % 23.4 % (8-40); MCH 30.9 pg (25.7-33.7); MCHC 33.9 g/dl (32.0-35.9); MEAN CELL VOLUME 90.9 fl (80-96); MEAN PLT VOLUME 8.3 fl (7.5-11.1); NEUT % 66.5 % (42.8-82.8); PLATELET COUNT 264 K/MM3 (134-434); RBC 3.26 M/mm3 (4.00-5.60); RDW 14.5 % (11.9-15.9); WHITE BLOOD COUNT 7.8 K/mm3 (4.0-10.0)
[2018-08-06 08:02] LABS: ALBUMIN 2.5 g/dl (3.4-5.0); ALK PHOS 65 U/L (45-117); ANION GAP 8 MMOL/L (8-16); BILIRUBIN,TOTAL 0.3 mg/dL (0.2-1); BLOOD UREA NITROGEN 39 mg/dL (7-18); CALCIUM 8.2 mg/dL (8.5-10.1); CHLORIDE 108 mmol/L (98-107); CO2 21 mmol/L (21-32); CREATININE 2.1 mg/dL (0.55-1.3); GLUCOSE,RANDOM 79 mg/dL (74-106); SGOT/AST 20 U/L (15-37); SGPT/ALT 24 U/L (13-61); SODIUM 137 mmol/L (136-145); TOT PROT 6.9 g/dl (6.4-8.2)
[2018-08-06] MEDS ORDERED: TAMSULOSIN HCL 0.4 MG CAP PO SCH (08:30)
[2018-08-06] MEDS ORDERED: DEXTROSE 5%-WATER - 50 ML IVPB ONE (10:30)
[2018-08-06] MEDS ORDERED: cefTRIAXone SODIUM 1 GM VIAL ONE (10:30)
[2018-08-06] MEDS: CEFTRIAXONE 1 GM in DEXTROSE 5%-WATER - 50 ML IVPB SCH ×2 (11:06→11:23)
[2018-08-06] MEDS: TAMSULOSIN HCL 0.4 MG CAP PO SCH (11:06)
[2018-08-06] MEDS: metoPROLOL SUCCINATE 25 MG TAB.SR.24H (FP) PO SCH (11:07)
[2018-08-06] MEDS: NICOTINE 14 MG/24 HOURS TOPICAL PATCH TD SCH (11:07)
[2018-08-06] MEDS: FINASTERIDE 5 MG TABLET (FP) PO SCH (11:07)
[2018-08-06] MEDS: DOCUSATE SODIUM 100 MG CAPSULE (FP) PO SCH (11:07)
[2018-08-06] MEDS: ASPIRIN 81 MG CHEWABLE TABLETS PO SCH (11:07)
[2018-08-06] MEDS: HEPARIN NA (PORCINE) 5,000 UNITS/ML 1ML VIAL SQ SCH ×2 (11:07→22:25)
--- NOTE | 2018-08-06 11:27 | PN ---
Progress Note (short form) - Note Progress Note: pt seen/examined chart reviewed awake/ comfortable was started on nicotine patch yesterday as pt was agitated/ wanted to go for smoke Vital Signs Temp 97.9 F 08/06/18 09:45 Pulse 71 08/06/18 09:45 Resp 18 08/06/18 09:45 BP 127/72 08/06/18 09:45 Pulse Ox 94 L 08/05/18 19:06 Intake & Output 08/05/18 08/05/18 08/06/18 11:59 23:59 11:59 Intake Total 1232 664 Output Total 1100 1350 Balance 132 -686 Weight 170 lb 134 lb 0.9 oz Intake: IV 832 664 1/2 Normal Saline 1,000 832 664 ml @ 83 mls/hr IV ASDIR [facility] Rx#:[id number] Oral 400 Output: Urine 1100 1350 Bernal 1100 1350 Other: Voiding Method Indwelling Catheter Indwelling Catheter Diaper Bowel Movement No No Height 5 ft 7 in 5 ft 10 in Body Mass Index (BMI) 26.6 19.2 Weight Measurement Method Standing Scale Weight Measurement Method Estimated by Staff Active Medications Alprazolam (Xanax -) 0.25 mg PO BID PRN PRN Reason: ANXIETY Last Admin: 08/05/18 16:18 Dose: 0.25 mg Aspirin (Asa -) 81 mg PO DAILY [facility] Last Admin: 08/06/18 11:07 Dose: 81 mg Docusate Sodium (Colace -) 200 mg PO DAILY [facility] Last Admin: 08/06/18 11:07 Dose: 200 mg Finasteride (Proscar -) 5 mg PO DAILY [facility] Last Admin: 08/06/18 11:07 Dose: 5 mg Heparin Sodium (Porcine) (Heparin -) 5,000 unit SQ BID [facility] Last Admin: 08/06/18 11:07 Dose: 5,000 unit Dextrose/Sodium Chloride (D5-1/2ns -) 1,000 mls @ 100 mls/hr IV ASDIR [facility] Levothyroxine Sodium (Synthroid -) 25 mcg PO 0700 [facility] Last Admin: 08/06/18 06:44 Dose: 25 mcg Metoprolol Succinate (Toprol Xl -) 25 mg PO DAILY [facility] Last Admin: 08/06/18 11:07 Dose: 25 mg Nicotine (Nicoderm Patch -) 14 mg TD DAILY [facility] Last Admin: 08/06/18 11:07 Dose: 14 mg Senna (Senna -) 2 tab PO HS [facility] Last Admin: 08/05/18 22:06 Dose: Not Given Tamsulosin HCl (Flomax -) 0.8 mg PO DAILY@0830 [facility] Last Admin: 08/06/18 11:06 Dose: 0.8 mg CBC, BMP 08/06/18 06:20 08/06/18 06:20 Microbiology 08/05/18 04:44 Urine Culture - Final Urine - Urine Bernal NO GROWTH OBTAINED Physical Examination Constitutional: Yes: No Distress, comfortable Cardiovascular: Yes: Regular Rate and Rhythm Respiratory: Yes: Diminished at abses Gastrointestinal: Yes: Normal Bowel Sounds, Soft. No: Tenderness Edema: No Problem List - Problems (1) Acute kidney injury superimposed on chronic kidney disease Code(s): N17.9 - ACUTE KIDNEY FAILURE, UNSPECIFIED; N18.9 - CHRONIC KIDNEY DISEASE, UNSPECIFIED (2) Dehydration Code(s): E86.0 - DEHYDRATION (3) Dementia Code(s): F03.90 - UNSPECIFIED DEMENTIA WITHOUT BEHAVIORAL DISTURBANCE Qualifiers: Dementia type: unspecified type Dementia behavioral disturbance: without behavioral disturbance Qualified Code(s): F03.90 - Unspecified dementia without behavioral disturbance (4) UTI (urinary tract infection) Code(s): N39.0 - URINARY TRACT INFECTION, SITE NOT SPECIFIED Qualifiers: Urinary tract infection type: site unspecified Hematuria presence: without hematuria Qualified Code(s): N39.0 - Urinary tract infection, site not specified (5) HTN (hypertension) Code(s): I10 - ESSENTIAL (PRIMARY) HYPERTENSION (6) Functional quadriplegia Code(s): R53.2 - FUNCTIONAL QUADRIPLEGIA Assessment/Plan stable IV fluids Urology eval noted monitor renal function urine culture results noted-- -ve no fever Increase fluids d/c abx monitor lytes pt is dnr/ di will follow oob- chair discussed with nursing staff
[2018-08-06 12:26] VITALS: BMI 21.6
[2018-08-06] MEDS: DEXTROSE 5%-0.45% SALINE 1,000 ML IV SCH (14:22)
[2018-08-06] MEDS: SENNOSIDES 8.6MG TABLET (FP) PO SCH (22:25)
[2018-08-07] MEDS: LEVOTHYROXINE NA 25 MCG TABLET (FP) PO SCH (06:35)
[2018-08-07 07:49] LABS: BASO % 0.3 % (0-2.0); EOS % 3.3 % (0-4.5); HEMATOCRIT 30.2 % (35.4-49); HEMOGLOBIN 10.1 GM/dL (11.7-16.9); LYMPH % 23.9 % (8-40); MCH 30.6 pg (25.7-33.7); MCHC 33.4 g/dl (32.0-35.9); MEAN CELL VOLUME 91.7 fl (80-96); MEAN PLT VOLUME 8.4 fl (7.5-11.1); MONO % 8.2 % (3.8-10.2); NEUT % 64.3 % (42.8-82.8); PLATELET COUNT 256 K/MM3 (134-434); RBC 3.29 M/mm3 (4.00-5.60); RDW 14.8 % (11.9-15.9); WHITE BLOOD COUNT 5.7 K/mm3 (4.0-10.0)
[2018-08-07 07:54] LABS: ANION GAP 8 MMOL/L (8-16); BLOOD UREA NITROGEN 29 mg/dL (7-18); CALCIUM 8.4 mg/dL (8.5-10.1); CHLORIDE 111 mmol/L (98-107); CO2 21 mmol/L (21-32); CREATININE 2.1 mg/dL (0.55-1.3); GLUCOSE,RANDOM 93 mg/dL (74-106); POTASSIUM 3.9 mmol/L (3.5-5.1); SODIUM 140 mmol/L (136-145)
[2018-08-07] MEDS: DEXTROSE 5%-0.45% SALINE 1,000 ML IV SCH ×3 (10:18→15:10)
[2018-08-07] MEDS: TAMSULOSIN HCL 0.4 MG CAP PO SCH (12:03)
[2018-08-07] MEDS: FINASTERIDE 5 MG TABLET (FP) PO SCH (12:03)
[2018-08-07] MEDS: DOCUSATE SODIUM 100 MG CAPSULE (FP) PO SCH (12:03)
[2018-08-07] MEDS: ASPIRIN 81 MG CHEWABLE TABLETS PO SCH (12:03)
[2018-08-07] MEDS: metoPROLOL SUCCINATE 25 MG TAB.SR.24H (FP) PO SCH (12:04)
[2018-08-07] MEDS: HEPARIN NA (PORCINE) 5,000 UNITS/ML 1ML VIAL SQ SCH ×2 (12:04→21:46)
--- NOTE | 2018-08-07 12:32 | PN ---
Progress Note (short form) - Note Progress Note: no complaints feels well Vital Signs - 24 hr 08/06/18 08/06/18 08/06/18 14:22 18:00 21:00 Temperature 98.2 F 98.0 F Pulse Rate 60 67 Respiratory 22 H 20 19 Rate Blood Pressure 104/56 L 140/92 O2 Sat by Pulse 100 Oximetry (%) 08/06/18 08/07/18 22:00 10:00 Temperature 98.4 F 98.2 F Pulse Rate 66 76 Respiratory 19 18 Rate Blood Pressure 141/59 L 114/55 L O2 Sat by Pulse Oximetry (%) Current Medications Generic Name Dose Route Start Last Admin Trade Name Freq PRN Reason Stop Dose Admin Aspirin 81 mg 08/05/18 10:45 08/07/18 12:03 Asa - PO 81 mg DAILY FILIBERTO Administration Docusate Sodium 200 mg 08/05/18 10:45 08/07/18 12:03 Colace - PO 200 mg DAILY FILIBERTO Administration Finasteride 5 mg 08/06/18 10:00 08/07/18 12:03 Proscar - PO 5 mg DAILY FILIBERTO Administration Heparin Sodium (Porcine) 5,000 unit 08/05/18 22:00 08/07/18 12:04 Heparin - SQ 5,000 unit BID FILIBERTO Administration Dextrose/Sodium Chloride 1,000 mls @ 100 mls/hr 08/06/18 11:30 08/07/18 10:18 D5-1/2ns - IV 100 mls/hr ASDIR FILIBERTO Administration Levothyroxine Sodium 25 mcg 08/06/18 07:00 08/07/18 06:35 Synthroid - PO 25 mcg 0700 FILIBERTO Administration Metoprolol Succinate 25 mg 08/05/18 10:45 08/07/18 12:04 Toprol Xl - PO 25 mg DAILY FILIBERTO Administration Senna 2 tab 08/05/18 22:00 08/06/18 22:25 Senna - PO Not Given HS FILIBERTO Tamsulosin HCl 0.8 mg 08/06/18 08:30 08/07/18 12:03 Flomax - PO 0.8 mg DAILY@0830 FILIBERTO Administration Laboratory Results - last 24 hr 08/07/18 08/07/18 06:30 06:30 WBC 5.7 RBC 3.29 L Hgb 10.1 L Hct 30.2 L MCV 91.7 MCH 30.6 MCHC 33.4 RDW 14.8 Plt Count 256 MPV 8.4 Absolute Neuts (auto) 3.7 Neutrophils % 64.3 Lymphocytes % 23.9 Monocytes % 8.2 Eosinophils % 3.3 Basophils % 0.3 Nucleated RBC % 0 Sodium 140 Potassium 3.9 Chloride 111 H Carbon Dioxide 21 Anion Gap 8 BUN 29 H Creatinine 2.1 H Creat Clearance w eGFR 30.86 Random Glucose 93 Calcium 8.4 L S1 S2 RRR lungs clear Abd- soft, NT no edema PLAN neves dc today in AM check bladder scan may need to replace neves if needed antibiotics dc renal function better dc planning Problem List - Problems (1) Acute kidney injury superimposed on chronic kidney disease Code(s): N17.9 - ACUTE KIDNEY FAILURE, UNSPECIFIED; N18.9 - CHRONIC KIDNEY DISEASE, UNSPECIFIED (2) Dehydration Code(s): E86.0 - DEHYDRATION (3) Dementia Code(s): F03.90 - UNSPECIFIED DEMENTIA WITHOUT BEHAVIORAL DISTURBANCE Qualifiers: Dementia type: unspecified type Dementia behavioral disturbance: without behavioral disturbance Qualified Code(s): F03.90 - Unspecified dementia without behavioral disturbance (4) UTI (urinary tract infection) Code(s): N39.0 - URINARY TRACT INFECTION, SITE NOT SPECIFIED Qualifiers: Urinary tract infection type: site unspecified Hematuria presence: without hematuria Qualified Code(s): N39.0 - Urinary tract infection, site not specified (5) HTN (hypertension) Code(s): I10 - ESSENTIAL (PRIMARY) HYPERTENSION (6) Functional quadriplegia Code(s): R53.2 - FUNCTIONAL QUADRIPLEGIA
[2018-08-07] MEDS: SENNOSIDES 8.6MG TABLET (FP) PO SCH (21:46)
[2018-08-08] MEDS: LEVOTHYROXINE NA 25 MCG TABLET (FP) PO SCH (06:18)
[2018-08-08] MEDS: DEXTROSE 5%-0.45% SALINE 1,000 ML IV SCH ×3 (06:19→21:26)
--- NOTE | 2018-08-08 10:12 | PN ---
Progress Note (short form) - Note Progress Note: no complaints feels well neves placed as he was retaining 600cc urine Vital Signs - 24 hr 08/07/18 08/07/18 08/08/18 18:00 21:00 00:00 Temperature 98.2 F Pulse Rate 101 H 63 Respiratory 18 20 20 Rate Blood Pressure 101/67 125/68 O2 Sat by Pulse 96 Oximetry (%) 08/08/18 08/08/18 09:00 11:22 Temperature 98.2 F Pulse Rate 66 Respiratory 20 20 Rate Blood Pressure 126/65 O2 Sat by Pulse 96 Oximetry (%) Current Medications Generic Name Dose Route Start Last Admin Trade Name Freq PRN Reason Stop Dose Admin Aspirin 81 mg 08/05/18 10:45 08/08/18 11:28 Asa - PO 81 mg DAILY FILIBERTO Administration Docusate Sodium 200 mg 08/05/18 10:45 08/08/18 11:27 Colace - PO 200 mg DAILY FILIBERTO Administration Finasteride 5 mg 08/06/18 10:00 08/08/18 11:28 Proscar - PO 5 mg DAILY FILIBERTO Administration Heparin Sodium (Porcine) 5,000 unit 08/05/18 22:00 08/08/18 11:28 Heparin - SQ 5,000 unit BID FILIBERTO Administration Dextrose/Sodium Chloride 1,000 mls @ 70 mls/hr 08/07/18 12:41 08/08/18 06:19 D5-1/2ns - IV 70 mls/hr ASDIR FILIBERTO Administration Levothyroxine Sodium 25 mcg 08/06/18 07:00 08/08/18 06:18 Synthroid - PO Not Given 0700 FILIBERTO Metoprolol Succinate 25 mg 08/07/18 12:49 08/08/18 11:35 Toprol Xl - PO 25 mg DAILY FILIBERTO Administration Senna 2 tab 08/05/18 22:00 08/07/18 21:46 Senna - PO Not Given HS FILIBERTO Tamsulosin HCl 0.8 mg 08/06/18 08:30 08/08/18 11:27 Flomax - PO 0.8 mg DAILY@0830 FILIBERTO Administration s1 s2 RRR lungs clear Abd- soft, NT no edema PLAN neves replaced continue with meds monitor renal function follow up renal function better dc planning Problem List - Problems (1) Acute kidney injury superimposed on chronic kidney disease Code(s): N17.9 - ACUTE KIDNEY FAILURE, UNSPECIFIED; N18.9 - CHRONIC KIDNEY DISEASE, UNSPECIFIED (2) Dehydration Code(s): E86.0 - DEHYDRATION (3) Dementia Code(s): F03.90 - UNSPECIFIED DEMENTIA WITHOUT BEHAVIORAL DISTURBANCE Qualifiers: Dementia type: unspecified type Dementia behavioral disturbance: without behavioral disturbance Qualified Code(s): F03.90 - Unspecified dementia without behavioral disturbance (4) UTI (urinary tract infection) Code(s): N39.0 - URINARY TRACT INFECTION, SITE NOT SPECIFIED Qualifiers: Urinary tract infection type: site unspecified Hematuria presence: without hematuria Qualified Code(s): N39.0 - Urinary tract infection, site not specified (5) HTN (hypertension) Code(s): I10 - ESSENTIAL (PRIMARY) HYPERTENSION (6) Functional quadriplegia Code(s): R53.2 - FUNCTIONAL QUADRIPLEGIA
[2018-08-08] MEDS: TAMSULOSIN HCL 0.4 MG CAP PO SCH (11:27)
[2018-08-08] MEDS: DOCUSATE SODIUM 100 MG CAPSULE (FP) PO SCH (11:27)
[2018-08-08] MEDS: HEPARIN NA (PORCINE) 5,000 UNITS/ML 1ML VIAL SQ SCH ×2 (11:28→21:23)
[2018-08-08] MEDS: ASPIRIN 81 MG CHEWABLE TABLETS PO SCH (11:28)
[2018-08-08] MEDS: FINASTERIDE 5 MG TABLET (FP) PO SCH (11:28)
[2018-08-08] MEDS: metoPROLOL SUCCINATE 25 MG TAB.SR.24H (FP) PO SCH (11:35)
[2018-08-08] MEDS: SENNOSIDES 8.6MG TABLET (FP) PO SCH (21:23)
[2018-08-08] MEDS ORDERED: MELATONIN 5 MG TABLETS PO ONE (22:41)
[2018-08-09] MEDS: LEVOTHYROXINE NA 25 MCG TABLET (FP) PO SCH (06:11)
[2018-08-09 09:15] VITALS: BP 126/61; PULSE 56; TEMP 97.8
[2018-08-09 09:38] LABS: ANION GAP 6 MMOL/L (8-16); BLOOD UREA NITROGEN 19 mg/dL (7-18); CALCIUM 7.9 mg/dL (8.5-10.1); CHLORIDE 112 mmol/L (98-107); CO2 22 mmol/L (21-32); CREATININE 1.8 mg/dL (0.55-1.3); GLUCOSE,RANDOM 86 mg/dL (74-106); POTASSIUM 3.8 mmol/L (3.5-5.1); SODIUM 141 mmol/L (136-145)
[2018-08-09] MEDS: TAMSULOSIN HCL 0.4 MG CAP PO SCH (11:43)
[2018-08-09] MEDS: ASPIRIN 81 MG CHEWABLE TABLETS PO SCH (11:43)
[2018-08-09] MEDS: DOCUSATE SODIUM 100 MG CAPSULE (FP) PO SCH (11:43)
[2018-08-09] MEDS: HEPARIN NA (PORCINE) 5,000 UNITS/ML 1ML VIAL SQ SCH (11:43)
[2018-08-09] MEDS: metoPROLOL SUCCINATE 25 MG TAB.SR.24H (FP) PO SCH (11:43)
[2018-08-09] MEDS: FINASTERIDE 5 MG TABLET (FP) PO SCH (11:43)
--- NOTE | 2018-08-09 11:49 | DS ---
Physical Examination Vital Signs: Vital Signs Temperature 97.8 F 08/09/18 09:14 Pulse Rate 56 L 08/09/18 09:14 Respiratory Rate 18 08/09/18 09:14 Blood Pressure 126/61 08/09/18 09:14 O2 Sat by Pulse Oximetry (%) 96 08/08/18 21:00 Findings/Remarks: pt seen/ examined awake/ comfortable denies pain all f/u noted Constitutional: Yes: No Distress, Calm Eyes: Yes: Conjunctiva Clear Neck: Yes: Supple Cardiovascular: Yes: Regular Rate and Rhythm Respiratory: Yes: Diminished Gastrointestinal: Yes: Soft Renal/: Yes: Neves Present Edema: No Labs: CBC, BMP 08/07/18 06:30 08/09/18 08:15 Discharge Summary Reason For Visit: ACUTE KIDNEY INJURY SUPERIMPOSED ON CHRONIC KIDNEY Current Active Problems Acute kidney injury superimposed on chronic kidney disease (Acute) Dehydration (Acute) Dementia (Acute) Functional quadriplegia (Acute) UTI (urinary tract infection) (Acute) Urinary retention due to benign prostatic hyperplasia (Acute) Hospital Course: admitted to arf on ckd/ urinary retention treated with fluids neves placed-- for urinary retention urology consult taken meds adjusted u/c -ve Renal function back to baseline Stable for d/c to custodial -- with Neves Trial of neves removal in custodial . meds reconcilled. discussed with nursing staff also as well as patient case coordinator . Discussed with pts also. Condition: Improved - Instructions Referrals: [facility] [Outside] Adalberto Cheek [Primary Care Provider] - Disposition: HALF-WAY FACILITY - Home Medications Comprehensive Discharge Medication List: Ambulatory Orders Aspirin [ASA -] 81 mg PO DAILY 03/29/18 Melatonin 3 mg PO HS 03/29/18 Metoprolol Succinate 25 mg PO DAILY 03/29/18 Sennosides [Senna] 2 tablet PO HS 07/16/18 Vit C/Ascorb Sod/Multivit-Min [Emergen-C 500 mg Chewable Tab] 500 mg PO BID Docusate Sodium [Colace] 200 mg PO DAILY 08/05/18 Ferrous Sulfate [Feosol] 325 mg PO DAILY 08/05/18 Levothyroxine [Synthroid -] 25 mcg PO DAILY 08/05/18 Finasteride [Proscar -] 5 mg PO DAILY tablet 08/09/18 Heparin - 5,000 unit SQ BID vial 08/09/18 Tamsulosin HCl [Flomax -] 0.8 mg PO DAILY@0830 cap.er.24h 08/09/18
== END 2018-08-09 16:59 | DRG 682 ==
LOC: JER 02:01 → JERBED 07:16 → J5S 12:33 → OBSVTOIN 12:48
PROVIDERS: ADMIT Internal Medicine; ATTEND Internal Medicine
DX: N17.9 Acute kidney failure, unspecified (principal); R53.2 Functional quadriplegia; N39.0 Urinary tract infection, site not specified; F03.90 Unspecified dementia, unspecified severity, without behavioral disturbance, psychotic disturbance, mood disturbance, and anxiety; E78.5 Hyperlipidemia, unspecified; I73.9 Peripheral vascular disease, unspecified; E86.0 Dehydration; I12.9 Hypertensive chronic kidney disease with stage 1 through stage 4 chronic kidney disease, or unspecified chronic kidney disease; N18.9 Chronic kidney disease, unspecified; N40.1 Benign prostatic hyperplasia with lower urinary tract symptoms; R33.8 Other retention of urine
CPT/HCPCS: 36415; 80048; 80053; 81003; 81015; 85025; 87086; 99283-25; G0378; J1644; J7030

== ENCOUNTER 2018-10-04 14:50 | Emergency (ER) | payer OTHER, BC ==
[2018-10-04 15:24] VITALS: BP 106/54; PULSE 68; TEMP 98.6; BMI 19.6
--- NOTE | 2018-10-04 15:26 | PDOC ---
History of Present Illness - General Chief Complaint: Urinary Catheter Problem Stated Complaint: CATHETER REPLACEMENT Time Seen by Provider: 10/04/18 15:24 History Source: Family Exam Limitations: No Limitations - History of Present Illness Initial Comments: 10/04/18 15:28 77 yo M with a hx of AAA, BPH, dementia, HLD, MDD, PAD, and CKD presents to the emergency department from [facility] after pulling out his neves catheter. Per intermediate there was no gross blood, the patient had some blood on shirt in AM Unclear whether event occurred last night or in AM, as patient did not have urine in neves bag. Denies recent fever, illness, chest pain, shortness of breath, abdominal pain, dysuria, hematuria urology Dr. Moreno Patient has neves catheter due to BPH, urinary retention Past History - Past Medical History Allergies/Adverse Reactions: Allergies Allergy/AdvReac Type Severity Reaction Status Date / Time No Known Allergies Allergy Verified 08/05/18 02:07 Home Medications: Ambulatory Orders Aspirin [ASA -] 81 mg PO DAILY 03/29/18 Melatonin 3 mg PO HS 03/29/18 Metoprolol Succinate 25 mg PO DAILY 03/29/18 Sennosides [Senna] 2 tablet PO HS 07/16/18 Vit C/Ascorb Sod/Multivit-Min [Emergen-C 500 mg Chewable Tab] 500 mg PO BID Docusate Sodium [Colace] 200 mg PO DAILY 08/05/18 Ferrous Sulfate [Feosol] 325 mg PO DAILY 08/05/18 Levothyroxine [Synthroid -] 25 mcg PO DAILY 08/05/18 Tamsulosin HCl [Flomax -] 0.8 mg PO DAILY@0830 cap.er.24h 08/09/18 Acetaminophen [Tylenol] 650 mg PO BID 10/04/18 Cephalexin Monohydrate [Keflex -] 500 mg PO Q6H 7 Days #21 capsule 10/04/18 Cephalexin Monohydrate [Keflex -] 500 mg PO Q6H 7 Days #21 capsule 10/04/18 Citalopram Hydrobromide [Celexa -] 10 mg PO DAILY 10/04/18 Multivitamins [Tab-A-Vit -] 1 tab PO DAILY 10/04/18 Cancer: Yes (LUNG) COPD: No CHF: No Dementia: Yes (alzheimers) Disorders: Yes (BPH) HTN: Yes Hypercholesterolemia: Yes Psychiatric Problems: Yes (major depressive disorder) - Suicide/Smoking/Psychosocial Hx Smoking History: Former smoker Have you smoked in the past 12 months: No If you are a former smoker, when did you quit?: 4 years ago Information on smoking cessation initiated: No Hx Alcohol Use: No Drug/Substance Use Hx: No Substance Use Type: None Review of Systems - Review of Systems Comments:: 10/04/18 15:51 limited 2/2 dementia GENERAL/CONSTITUTIONAL: No fever or chills. No weakness. CARDIOVASCULAR: No chest pain or shortness of breath RESPIRATORY: No cough, wheezing, or hemoptysis. GASTROINTESTINAL: No nausea, vomiting, diarrhea or constipation. GENITOURINARY: No dysuria, frequency MUSCULOSKELETAL: No joint or muscle swelling or pain. No neck or back pain. SKIN: No rash NEUROLOGIC: No headache, vertigo, loss of consciousness, or change in strength/ sensation. *Physical Exam - Vital Signs Last Vital Signs Temp Pulse Resp BP Pulse Ox 98.6 F 68 18 106/54 L 99 10/04/18 15:21 10/04/18 15:21 10/04/18 15:21 10/04/18 15:21 10/04/18 15:21 - Physical Exam Comments: 10/04/18 15:49 GENERAL: Awake, alert, and fully oriented, in no acute distress HEAD: No signs of trauma, normocephalic, atraumatic EYES: EOMI, sclera anicteric, conjunctiva clear ENT: oropharynx clear without exudates. Moist mucosa NECK: Normal ROM, supple LUNGS: No distress, speaks full sentences, clear to auscultation bilaterally HEART: Regular rate and rhythm, normal S1 and S2, no murmurs, rubs or gallops, peripheral pulses normal and equal bilaterally. ABDOMEN: Soft, nontender, normoactive bowel sounds. No guarding, no rebound. No masses EXTREMITIES : Normal inspection, Normal range of motion, no edema. No clubbing or cyanosis. NEUROLOGICAL: Cranial nerves II through XII grossly intact. Normal speech, no focal sensorimotor deficits SKIN: Warm, Dry, normal turgor, no rashes or lesions noted GENITAL: circumcised male, vertical lie of testes, no blood at urethral meatus, no erythema, lesions or ulcers Medical Decision Making - Medical Decision Making 10/04/18 15:48 77 yo M with a hx of AAA, BPH, dementia, HLD, MDD, PAD, and CKD presents to the emergency department from [facility] after pulling out his neves catheter. Per intermediate there was no gross blood, the patient had some blood on shirt in AM Unclear whether event occurred last night or in AM, as patient did not have urine in neves bag. ED course: Patient with dementai and pulledo ut neves catheter, this has happened in the past and the family would like a permanent cather, however this is not routine in ED will run ua and ucx to ensure no gross blood and uti will replace neves catheter patient is followed by urologist and will have f/u outpatient 10/04/18 17:36 ua with uti will dose Keflex D/C to [facility] *DC/Admit/Observation/Transfer Diagnosis at time of Disposition: Dislodged Neves catheter - Discharge Dispostion Disposition: HOME Condition at time of disposition: Stable Decision to Admit order: No - Prescriptions Prescriptions: Cephalexin Monohydrate [Keflex -] 500 mg PO Q6H 7 Days #21 capsule Cephalexin Monohydrate [Keflex -] 500 mg PO Q6H 7 Days #21 capsule - Referrals Referrals: Adalberto Cheek [Primary Care Provider] - - Patient Instructions Printed Discharge Instructions: How to Care for Your Neves Catheter -- Male Additional Instructions: You were seen in the ED for complaints of removal of neves catheter. In the ED you were evaluated with labwork and had your foely catheter replaced. Your results showed a urinary tract infection. There does not appear to be an acute need for immediate hospitalization. You are advised to follow up with your Primary Care Physician within 1 week. Please follow up with your Urologist Dr. Moreno for further management. You were prescribed anantiobiotic Keflex to be taken 4 times a day for 7 days. Return to the ED immediately if you experience worsening pain in the urethra, blood in the urine, pain in the abdomen or pelvis or fevers. - Post Discharge Activity
[2018-10-04] MEDS ORDERED: PHENAZOPYRIDINE HCL 100 MG TABLET (FP) PO ONE (15:44)
[2018-10-04] MEDS ORDERED: PHENAZOPYRIDINE HCL 100 MG TABLET (FP) ONE (16:21)
[2018-10-04 16:34] LABS: EPI CELLS 0.1 /HPF (0-5); URINE APPEARANCE CLEAR; URINE BACTERIA 3.9 /hpf (NEGATIVE); URINE BILIRUBIN NEGATIVE (NEGATIVE); URINE CASTS 0 /hpf (0-8); URINE COLOR YELLOW; URINE GLUCOSE (UA) NEGATIVE (NEGATIVE); URINE KETONE NEGATIVE (NEGATIVE); URINE LEUK ESTERASE 3+ (NEGATIVE); URINE NITRITE NEGATIVE (NEGATIVE); URINE PROTEIN 1+ (NEGATIVE); URINE RBC 15 /hpf (0-4); URINE UROBILINOGEN 0.2 mg/dL (0.2-1.0); URINE WBC 203 /hpf (0-5)
--- NOTE | 2018-10-04 17:39 | PDOC ---
Attending Attestation - Resident Resident Name: Shereen Stout - ED Attending Attestation I have performed the following: I have examined & evaluated the patient, The case was reviewed & discussed with the resident, I agree w/resident's findings & plan, Exceptions are as noted - HPI HPI: 10/04/18 17:35 77-year-old male brought in by ambulance from [facility] [facility] for displaced urinary catheter. They are not aware when he actually pulled out his catheter. 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
[2018-10-04] MEDS ORDERED: CEPHALEXIN MONOHYDRATE 500 MG CAPSULE (UD) PO ONE (17:42)
[2018-10-04] MEDS ORDERED: LORazepam 2 MG/ML SDV VIAL ONE (18:05)
[2018-10-04] MEDS ORDERED: CEPHALEXIN MONOHYDRATE 500 MG CAPSULE (UD) ONE (18:09)
== END 2018-10-04 19:57 | disposition home or self-care (01) ==
LOC: JER 14:50
PROC: 3E023NZ Introduction of Analgesics, Hypnotics, Sedatives into Muscle, Percutaneous Approach (ICD-10-PCS; principal; 2018-10-04)
PROC: 0T2BX0Z Change Drainage Device in Bladder, External Approach (ICD-10-PCS; 2018-10-04)
DX: T83.021A Displacement of indwelling urethral catheter, initial encounter (principal); I12.9 Hypertensive chronic kidney disease with stage 1 through stage 4 chronic kidney disease, or unspecified chronic kidney disease; N18.9 Chronic kidney disease, unspecified; N40.0 Benign prostatic hyperplasia without lower urinary tract symptoms; F33.9 Major depressive disorder, recurrent, unspecified; G30.9 Alzheimer's disease, unspecified; F02.80 Dementia in other diseases classified elsewhere, unspecified severity, without behavioral disturbance, psychotic disturbance, mood disturbance, and anxiety; E78.5 Hyperlipidemia, unspecified; Z85.118 Personal history of other malignant neoplasm of bronchus and lung
CPT/HCPCS: 51702; 81003; 87086; 96372; 99282-25